=== PATIENT | female | born 1950 | race Caucasian/White ===

== ENCOUNTER 2017-06-28 18:50 | Inpatient (IN) | payer MEDICARE ==
[~2017-06-28] VITALS: Ht 182.9 cm; Wt 73.9 kg
--- NOTE | ~2017-06-28 | OP ---
PATIENT NAME: CODY CANO MEDICAL RECORD: [id number] :50 LOCATION:D.M2 D.2132 ADMISSION DATE:06/28/17 SURGEON: PRAKASH VILLALPANDO MD DATE OF OPERATION: 06/29/2017 PROCEDURES: 1. PTCA stent LAD diagonal. 2. Left heart catheterization. 3. Selective coronary angiography. 4. Left ventriculogram. INDICATIONS: Angina and coronary artery disease. PROCEDURE IN DETAIL: After informed consent was obtained and after detailed explanation of risks, benefits, as well as alternative therapies, the patient elected to proceed with angiogram and angioplasty. The right radial area was prepped and draped in normal sterile fashion. The right radial artery was cannulated via modified Seldinger technique with placement of 6-Togolese sheath. All catheters exchanged through this sheath. FINDINGS: 1. The left anterior descending has a relatively large diagonal system with 90% stenosis at the ostium. 2. The left main is with no significant angiographic disease. 3. The left circumflex shows mild irregularities, but no flow-limiting stenosis. 4. Right coronary has mild irregularities, but no flow-limiting stenosis. PTCA STENT OF THE LAD DIAGONAL: The stent used is a 2.25 x 8 mm Integrity. Result was 0% residual stenosis. OVERALL IMPRESSION: Successful percutaneous transluminal coronary angioplasty stent of the LAD diagonal from 90% initial stenosis to 0% residual. TRANSINT:[id number] Voice Confirmation ID: [id number] DOCUMENT ID: [id number] PRAKASH VILLALPANDO MD CC: [id number] DICTATION DATE: 06/29/17 1214 SUPERVISOR RIPRAP PLACING: 06/29/17 1420 ADM IN [place] [address] [place] [address]
--- NOTE | ~2017-06-28 | HEMODYNAMI ---
PATIENT:CODY CANO MEDICAL RECORD: [id number] : 50 [facility]ATION[facility] D.2132 [id number] ADMISSION DATE: 06/28/17 Generatedon:06/29/201712:18 Patient name: CODY CANO Patient #: [id number] SSN: : 1950 Date of study: 06/29/2017 Page: Of Hemodynamic Procedure Report Patient Data Patient Demographics Procedure consent was obtained First Name: CODY Gender: Female Last Name: RACHAEL : 1950 [facility] Initial: D Age: 67 year(s) Patient #: [id number] Race: Unknown Additional ID: [id number] Contact details [address]: [address] [place] [address] State: [place] City: [place] Zip code: [address] Past Medical History Allergies Allergen Reaction Date Comments Reported Other allergy 06/29/2017 Niacin, Crestor, Simvastatin Admission Admission Data Admission Date: 06/28/2017 Admission Time: 18:51 [facility] Lab Result Date: 06/28/2017 Lab Result Time: 21:00 Biochemistry Name Units Result Min Max BUN mg/dl 8 --(*---)-- 7 18 Creatinine mg/dl 0.9 --(-*--)-- 0.6 1.3 CBC Name Units Result Min Max Hematocrit % 36.3 *-(----)-- 42 54 Hemoglobin g/dl 12.5 *-(----)-- 13.5 17.5 Procedure Procedure Types Cath Procedure Diagnostic Procedure C [facility] w/Coronaries PCI Procedure Coronary Stent Initial Miscellaneous Procedures Moderate Sedation up to 15 minutes Procedure Description Procedure Date Procedure Date: 06/29/2017 Procedure Start Time: 12:00 Procedure End Time: 12:17 Procedure Staff Name Function Cachorro Thompson MD Performing Physician Samantha Carmona RT Scrub Milad Caldwell RN Nurse Freddy Garay RT Monitor Procedure Data Cath Procedure Fluoroscopy Diagnostic fluoroscopy Total fluoroscopy Time: 2.9 time: 2.9 min min Diagnostic fluoroscopy Total fluoroscopy dose: 430 dose: 430 mGy mGy Contrast Material Contrast Material Type Amount (ml) Isovue 300 0 Isovue 300 66 Entry Location Entry Primary Successful Side Size Upsize Upsize Entry Closure Curry ccessful Closure Location (Fr) 1 (Fr) 2 (Fr) Remarks Device Remarks Radial Right 6 Fr Mechanical artery Short Compression Estimated blood loss: 10 ml Diagnostic catheters Device Type Used For End Catheter Placement Diagnostic Terumo 5Fr Procedure Cleaton 110cm catheter Procedure Complications No complications Procedure Medications Medication Administration Route Dosage Oxygen NC 2 l/min Heparin Flush Bag added to field 2 bags (1000units/500ml NS) 0.9% NaCl I.V. 100 ml/hr Radial Cocktail added to field 1 syringe (Verapomil 2mg/Nitro 400mcg/Heparin 1500units) Fentanyl I.V. 50 mcg Versed I.V. 1 mg Radial Cocktail I.A. 1 syringe (Verapomil 2mg/Nitro 400mcg/Heparin 1500units) Fentanyl I.V. 50 mcg Versed I.V. 1 mg Heparin Bolus I.V. 4000 units Fentanyl I.V. 50 mcg Fentanyl I.V. 50 mcg Plavix P.O. 75 mg Hemodynamics Rest Heart Rate: 69 (bpm) Pressure Samples Time Site Value (mmHg) Purpose Heart Use Rate(bpm) 12:05 LV 126/10,7 Snapshot 93 Snapshots Pre Cath Intra NCS Post Cath Vital Signs Time Heart Resp SPO2 etCO2 KV0gwum NIBP (mmHg) Rhythm Pain Sedation Rate (ipm) (%) (mmHg) (mmHg) Status Level (bpm) 11:45:58 60 17 100 0 0 144/72(98) NSR 0 (11) 10(A) , No pain 11:50:12 63 17 100 0 0 147/74(95) NSR 0 (11) 10(A) , No pain 11:54:28 71 18 97 0 0 131/71(95) NSR 0 (11) 10(A) , No pain 11:58:38 72 18 97 0 0 137/73(98) NSR 0 (11) 10(A) , No pain 12:02:50 74 16 95 0 0 125/77(120) NSR 0 (11) 9(A) , No pain 12:07:53 90 16 94 0 0 123/73(97) NSR 0 (11) 9(A) , No pain 12:12:03 89 18 95 0 0 142/64(93) NSR 0 (11) 9(A) , No pain 12:15:36 79 18 92 0 0 113/78(106) NSR 0 (11) 10(A) , No pain Medications Time Medication Route Dose Verified Delivered Reason Note s Effectiveness by by 11:47:41 Oxygen NC 2 l/min Milad Stinson Per physician Javi Caldwell RN RN 11:47:48 Heparin Flush added 2 bags Milad Stinson used for Bag to Javi Caldwell RN procedure (1000units/500ml field RN NS) 11:47:58 0.9% NaCl I.V. 100 Milad Milad Per physician ml/hr Javi Caldwell RN RN 11:48:09 Radial Cocktail added 1 Milad Stinson used for (Verapomil to syringe Javi Caldwell RN procedure 2mg/Nitro field RN 400mcg/Heparin 1500units) 12:01:05 Fentanyl I.V. 50 mcg Milad Stinson for sedation Javi Caldwell RN RN 12:01:11 Versed I.V. 1 mg Milad Stinson for sedation Javi Caldwell RN RN 12:04:16 Radial Cocktail I.A. 1 Milad Cachorro for (Verapomil syringe Javi Thompson MD vasodilation 2mg/Nitro RN 400mcg/Heparin 1500units) 12:04:22 Fentanyl I.V. 50 mcg Milad Stinson for sedation Javi Caldwell RN RN 12:04:27 Versed I.V. 1 mg Milad Stinson for sedation Javi Caldwell RN RN 12:08:03 Heparin Bolus I.V. 4000 Milad Milad for units Javi Caldwell RN anticoagulation RN 12:08:08 Fentanyl I.V. 50 mcg Milad Stinson for sedation Javi Caldwell RN RN 12:10:16 Fentanyl I.V. 50 mcg Milad Montesy for sedation Javi Caldwell RN RN 12:14:18 Plavix P.O. 75 mg Milad Stinson for Javi Caldwell RN antiplatelet RN therapy Procedure Log Time Note 11:17:01 Milad Caldwell RN sent for patient. Start room use. 11:17:02 Time tracking: Call back 11:17:14 Plan of Care:Hemodynamics will remain stable., Cardiac rhythm will remain stable., Comfort level will be maintained., Respiratory function will remain adequate., Patient/ family verbilizes understanding of procedure., Procedure tolerated without complication., Recovers from procedure without complications.. 11:28:50 Lab Result : Hemoglobin 12.5 g/dl 11::50 Lab Result : Creatinine 0.9 mg/dl 11::50 Lab Result : BUN 8 mg/dl 11::50 Lab Result : Hematocrit 36.3 % 11:30:57 H&P Date Dictated: 06/28/2017 Within 30 days and on chart.. 11:37:57 Patient received from PCU to CCL 1 Alert and oriented. Tansferred to table in Supine position. 11:37:58 Warm blankets applied, and caro hugger turned on for patient comfort. 11:37:58 Correct patient and procedure confirmed by team. 11:38:00 Signed procedure consent form obtained from patient. 11:38:01 ECG and BP/O2 sat monitors applied to patient. 11:38:01 Full Disclosure recording started 11:44:44 Vital chart was started 11:44:48 Rhythm: sinus rhythm 11:47:41 Oxygen 2 l/min NC was administered by Milad Caldwell RN; Per physician; 11:47:48 Heparin Flush Bag (1000units/500ml NS) 2 bags added to field was administered by Milad Caldwell RN; used for procedure; 11:47:58 0.9% NaCl 100 ml/hr I.V. was administered by Milad Caldwell RN; Per physician; 11:48:09 Radial Cocktail (Verapomil 2mg/Nitro 400mcg/Heparin 1500units) 1 syringe added to field was administered by Milad Caldwell RN; used for procedure; 11:50:42 Pre-procedure instructions explained to patient. 11:50:42 Pre-op teaching completed and patient verbalized understanding. 11:50:46 Family in patients room. 11:50:47 Patient NPO since Midnight. 11:51:25 Patient allergic to Other allergyNiacin, Crestor, Simvastatin 11:51:27 Is the patient allergic to Iodine/contrast media? No. 11:51:32 Is patient on blood thinner?Yes 11:51:36 ACC The patient was administered the following blood thiners within the last 24 hours: ACCPlavix 11:51:38 Patient diabetic? Yes. 11:51:39 If diabetic: On Metformin? Yes 11:51:44 If on Metformin: Last Dose? 06/28/2017 11:51:51 Previous problem with sedation/anesthesia? No ? 11:51:54 Snore? Yes 11:52:46 Sleep apnea? No 11:52:48 Deviated septum? No 11:52:54 Opens mouth fully? Yes 11:52:55 Sticks out tongue? Yes 11:52:57 Airway obstruction? No ? 11:53:05 Dentures? Yes OUT 11:53:10 Modified Suleman's test Ulnar < 7 seconds 11:53:12 Patient pain scale 0/10 ?. 11:53:22 IV patent on arrival in left forearm with 0.9% NaCl at [facility]. 11:53:27 Lab results completed and on chart. 11:53:31 Right Radial & Right Groin area was prepped with chlora-prep and draped in sterile fashion 11:53:32 Alarms reviewed by R. N. 11:53:32 Sharps counted by scrub and verified by R.N. 11:53:36 Use device set Radial Dx 11:53:39 Tegaderm 4 x 4 opened to sterile field. 11:53:40 Acist Manifold opened to sterile field. 11:53:40 Acist Hand Control opened to sterile field. 11:53:42 Acist Syringe opened to sterile field. 11:53:42 Medline Cath Pack opened to sterile field. 11:53:43 Bag Decanter opened to sterile field. 11:53:43 Terumo 6Fr Slender Glidesheath opened to sterile field. 11:53:43 St Ayad 260cm J .035 wire opened to sterile field. 11:53:50 Physician paged 11:54:02 Baseline sample Acquired. 12:00:31 Zero performed for pressure channel P1 12:00:41 Physician arrived 12:00:41 --------ALL STOP TIME OUT------ 12:00:41 Final Timeout: patient, procedure, and site verified with staff and physician. All members of the team are in agreement. 12:00:43 Right Radial & Right Groin site verified by team. 12:00:45 Physical assessment completed. ASA score P 2 - A patient with mild systemic disease as per Cachorro Thompson MD. 12:00:48 Sedation plan: IV Moderate Sedation Versed, Fentanyl 12:00:55 Procedure started. 12:00:59 Local anesthetic to right radial artery with Lidocaine 2% by Cachorro Thompson MD.INITIAL ACCESS ONLY 12:01:05 Fentanyl 50 mcg I.V. was administered by Milad Caldwell RN; for sedation; 12:01:06 A 6 Fr Short sheath was inserted into the Right Radial artery 12:01:11 Versed 1 mg I.V. was administered by Milad Caldwell RN; for sedation; 12:04:16 Radial Cocktail (Verapomil 2mg/Nitro 400mcg/Heparin 1500units) 1 syringe I.A. was administered by Cachorro Thompson MD; for vasodilation; 12:04:18 A Diagnostic ISpeakumo 5Fr Cleaton 110cm catheter was advanced over the wire and used for Procedure. 12:04:22 Fentanyl 50 mcg I.V. was administered by Milad Caldwell RN; for sedation; 12:04:27 Versed 1 mg I.V. was administered by Milad Caldwell RN; for sedation; 12:05:09 LV gram done using TORRE 12:05:12 Injector settings: Ml/sec: 5, Volume: 15, 12:05:16 EF : 60 % 12:05:21 LCA angiography performed. 12:05:53 GonnaBe BasixCompak Inflation Kit opened to sterile field. 12:05:54 Carrizales Whisper J 300cm 0.014 guide wire opened to sterile field. 12:06:38 RCA angiography performed. 12:06:43 Carrizales Whisper J 300cm 0.014 guide wire opened to sterile field. 12:06:47 Cordis 6FR XBLAD 3.5 guide catheter opened to sterile field. 12:08:03 Heparin Bolus 4000 units I.V. was administered by Milad Caldwell RN; for anticoagulation; 12:08:08 Fentanyl 50 mcg I.V. was administered by Milad Caldwell RN; for sedation; 12:08:08 Catheter removed. 12:08:14 6 Fr xblad 3.5 guide catheter was inserted over the wire 12:08:18 1st. whisper wire advanced down LAD. 12:09:12 Wire advanced across lesion. 12:09:15 2nd. whisper wire advanced down Diag. 12:09:20 Wire advanced across lesion. 12:10:16 Fentanyl 50 mcg I.V. was administered by Milad Caldwell RN; for sedation; 12:11:03 Inflation Number: 1 A Medtronic Integrity 2.25 X 8 stent was prepped and advanced across the 1st Diag. The stent was deployed at 13 NATALIO for 0:10 (min:sec). 12:11:19 Stent catheter was removed intact over wire. 12:11:20 Wire removed. 12:11:20 Wire removed. 12:11:21 Guide catheter removed. 12:11:26 Terumo TR Band Standard opened to sterile field. 12:12:00 Sheath removed intact; hemostasis achieved with Mechanical Compression to the Right Radial artery. 12:12:10 Procedure ended.(Physican Out) 12:14:18 Plavix 75 mg P.O. was administered by Milad Caldwell RN; for antiplatelet therapy; 12:14:45 Fluoroscopy time 02.90 minutes. 12:14:49 Fluoroscopy dose: 430 mGy 12:14:49 Flurop Dose total: 430 12:14:55 Contrast amount:Isovue 300 0ml. 12:15:17 Sharps counted by scrub and verified by R.N. 12:15:20 Contrast amount:Isovue 300 66ml. 12:15:24 TR band inflated with 10cc of air. 12:15:31 Insertion/operative site no bleeding no hematoma. 12:15:35 Post right radial artery:stable, soft, clean and dry 12:15:37 Post Procedure Pulses reassessed and unchanged 12:15:42 Post-procedure physical assessment completed. ASA score P 2 - A patient with mild systemic disease as per Cachorro Thompson MD. 12:15:44 Post procedure rhythm: unchanged. 12:15:46 Estimated blood loss: 10 ml 12:15:47 Post procedure instruction explained to patient.Patient verbalizes understanding. 12:15:48 Patient needs reinforcement of post procedure teaching. 12:16:23 Procedure type changed to Cath procedure, Diagnostic procedure, LHC, LHC w/Coronaries, PCI procedure, Coronary Stent Initial, Miscellaneous Procedures, Moderate Sedation up to 15 minutes 12:16:46 Procedure and supply charges have been captured, reviewed, submitted and are correct. 12:16:48 Procedure Complication : No complications 12:16:53 Vital chart was stopped 12:16:55 See physician's report for complete and final results. 12:16:57 Report given to PCU. 12:17:00 Patient transfered to PCU with Stretcher. 12:17:03 Procedure ended. 12:17:03 Full Disclosure recording stopped 12:17:17 End room use (Document Last) Intervention Summary Intervention Notes Time ActionType Lesion and Equipment Action# Pressure Duration Attributes Used 12:11:03 Place stent 1st Diag Medtronic 1 13 00:10 Integrity 2.25 X 8 stent Device Usage Item Name Manufacture Quantity Catalog Hospital Part Current Minimal Lot# / Number Charge Number Stock Stock Serial# Code Tegaderm 4 1 [id number] 228671 878210 5 x 4 Acist Acist 1 42641 099292 636810 704471 5 Manifold Medical Systems Inc Acist Hand Acist 1 59489 251819 262679 256750 5 Control Medical Systems Inc Acist Acist 1 04071 689344 948310 185825 20 Syringe Medical Systems Inc Medline Cardinal 1 [id number] 401268 79395 088516 5 Cath Pack Health Bag Microtek 1 2001S 022311 92532 260066 5 TellMi Medical Inc. Terumo 6Fr Terumo 1 [id number] 247595 757613 941260 [address] Ay[address] St Ayad 1 977817 680238 866194 012047 30 260cm J .035 wire Diagnostic Terumo 1 40-4014 804831 084250 191047 5 Terumo 5Fr Cleaton 110cm catheter Merit Merit 1 [id number] 299010 447985 335931 15 BasixCompak Medical Inflation Kit Carrizales Carrizales 2 [id number] 327060 911768 537883 5 Whisper J Vascular 300cm 0.014 guide wire Cordis 6FR Cardinal 1 [id number] 791266 996640 821974 10 XBLAD 3.5 Health guide catheter Medtronic Medtronic 1 [id number] 983736 583957 1 [id number] Integrity 2.25 X 8 stent Terumo TR Terumo 1 [id number] 334484 280119 567305 40 Band Standard Signature Audit [place] Stage Time Signature Unsigned Intra-Procedure 06/29/2017 Freddy Garay 12:18:29 PM RT(R) Signatures Monitor : Freddy Garay RT Signature : Date : Time : [facility] [address] [place] [address]
--- NOTE | ~2017-06-28 | DS ---
PATIENT:CODY SALCEDO :50 MEDICAL RECORD: [id number] DISCHARGE SUMMARY ADMISSION DATE: 06/28/17 DISCHARGE DATE: DATE OF DISCHARGE: 06/29/2017 DISCHARGE DIAGNOSES: 1. Angina. 2. Coronary artery disease. 3. Percutaneous transluminal coronary angioplasty stent of left anterior descending this admission. HOSPITAL COURSE: Mrs. Salcedo presents with anginal symptomatology, found to have significant disease to the LAD, diagonal and underwent successful PTCA stent, had an uneventful postop course. She was discharged home with the addition of aspirin and Plavix to her medical regimen. She will follow up with [facility] in 1 month. TRANSINT:[id number] Voice Confirmation ID: [id number] DOCUMENT ID: [id number] PRAKASH VILLALPANDO MD CC: [id number] DICTATION DATE: 06/29/17 1213 PROFESSOR OF VOICE: 06/29/17 1534 ADM IN [facility] [address] [place] [address]
--- NOTE | 2017-06-28 19:15 | NUR ---
PT ARRIVED TO UNIT FROM DR PENG OFFICE. ENTERED UNIT AMBULATORY WITH A STEADY GAIT. PT STATES: "THERE IS NOTHING WRONG WITH ME, I DONT KNOW WHY I LET THEM TALK ME INTO COMING HERE." PT STATES: "THEY FOUND A BAD HEART RHYTHYM AND SENT ME HERE." ADMITTED TO ROOM 2131. TELEMETRY STARTED, AND EKG DONE. I ATTEMPTED TO START SALINE LOCK X 1 WITHOUT SUCCESS. CHARGE NURSE REQUESTED TO START IV. PT IS ALERT AND ORIENTED X 3. HER DAUGHTER IS AT THE BEDSIDE. PT IS SENDING HER HOME, STATING SHE DOES NOT NEED A SALVAGE DETERMINER. SR'S ARE UP X 2 IN BED. CALL LIGHT AND BEDSIDE TABLE ARE WITHIN EASY REACH.
[2017-06-28] MEDS ORDERED: PRINZIDE 20/12.1 TA1 PO (19:59)
[2017-06-28 20:00] VITALS: BP 137/77
[2017-06-28] MEDS ORDERED: OMEPRAZOLE40 MG PO (20:01)
[2017-06-28] MEDS ORDERED: EFFEXOR XR37.5 MG PO (20:02)
[2017-06-28] MEDS ORDERED: GLUCOPHAGE500 MG PO (20:02)
[2017-06-28] MEDS ORDERED: GLIMEPIRIDE2 MG PO (20:03)
[2017-06-28 21:09] LABS: BASOPHILS 0.5 % (0-2); EOSINOPHILS 3.1 % (0-7); HEMATOCRIT 36.3 % (36.0-48.0); HEMOGLOBIN 12.5 g/dL (12-16); IMMATURE GRANULOCYTES 0.3 % (0-5); LYMPHOCYTES 45.6 % (15-50); MCH 30.3 pg (26.0-34.0); MCHC 34.4 g/dL (31.0-37.0); MCV 87.9 fL (80.0-100.0); MEAN PLATELET VOLUME 9.4 fL (7.4-10.4); MONOCYTES 7.6 % (2-11); NEUTROPHILS 42.9 % (40-80); PLATELET COUNT 206 10x3/uL (130-400); RBC 4.13 10x6/uL (4.00-5.40); RDW 13.2 % (11.5-14.5); WBC 5.8 10x3/uL (4.8-10.8)
[2017-06-28 21:46] LABS: ALBUMIN 3.5 g/dL (3.4-5.0); ALKALINE PHOSPHATASE 102 U/L (46-116); ALT (SGPT) 64 U/L (10-68); BILIRUBIN - TOTAL 0.39 mg/dL (0.2-1.3); CALC OSMOLALITY 277 mosm/kg (275-300); CALCIUM 8.5 mg/dL (8.5-10.1); CARBON DIOXIDE 29.3 mmol/L (21.0-32.0); CHLORIDE - SERUM 100 mmol/L (98-107); CKMB 0.7 U/L (0.0-3.6); CREATINE KINASE 90 UL (21-215); CREATININE - SERUM 0.9 mg/dL (0.6-1.3); GLUCOSE 127 mg/dL (74-106); MAGNESIUM - SERUM 1.7 mg/dL (1.8-2.4); POTASSIUM - SERUM 3.3 mmol/L (3.5-5.1); PROTEIN - SERUM 6.9 g/dL (6.4-8.2); SODIUM 139 mmol/L (136-145); UREA NITROGEN 8 mg/dL (7-18); eGFR NON AFRICAN AMERICAN 66 mL/min (90-120)
[2017-06-28 21:49] LABS: TROPONIN-I < 0.017 ng/mL (0.000-0.060)
--- NOTE | 2017-06-28 22:17 | NUR ---
PT IS RESTING QUIETLY IN BED WITH EYES CLOSED. RESPS ARE EVEN AND UNLABORED. NO ACUTE DISTRESS NOTED.
[2017-06-28 22:18] VITALS: Ht 182.9 cm; Wt 73.9 kg
[2017-06-29 00:02] VITALS: BP 116/74
--- NOTE | 2017-06-29 00:10 | NUR ---
RESTING IN BED WITH EYES CLOSED.
[2017-06-29 04:00] VITALS: BP 113/44
--- NOTE | 2017-06-29 04:05 | NUR ---
PT IS RESTING QUIETLY IN BED WITH EYES CLOSED. NO DISTRESS NOTED.
[2017-06-29 04:53] LABS: CKMB 0.5 U/L (0.0-3.6); CREATINE KINASE 82 UL (21-215)
[2017-06-29 04:54] LABS: TROPONIN-I < 0.017 ng/mL (0.000-0.060)
--- NOTE | 2017-06-29 07:34 | NUR ---
AM ROUNDS- PT IN BED, DENIES ANY NEEDS AT THIS TIME. CALL LIGHT IN REACH, LT FA IV SL. BED LOW AND WHEELS LOCKED. NAD NOTED, WILL CONTINUE TO MONITOR.
[2017-06-29 09:34] VITALS: BP 125/62
--- NOTE | 2017-06-29 11:23 | NUR ---
PRE-OP MES GIVEN. PT IN BED, DENIES ANY NEEDS AT THIS TIME. FAMILY AT BEDSIDE, NAD NOTED, WILL CONTINUE TO MONITOR.
--- NOTE | 2017-06-29 11:40 | NUR ---
PT TRANSFERED TO DOCUMENT PROCESSING SPECIALIST VIA BED, NAD NOTED.
--- NOTE | 2017-06-29 12:15 | CN ---
PATIENT NAME:CODY SALCEDO MEDICAL RECORD: [id number] : 50 LOCATION:. D.2132 ADMIT DATE: 06/28/17 ACCOUNT: [id number] CONSULTING PHYSICIAN: PRAKASH VILLALPANDO MD REFERRING PHYSICIAN: WALTER HEATH DO DATE OF CONSULTATION: 06/28/2017 Cardiology Consultation ADMITTING DIAGNOSES: 1. Unstable angina. 2. Hypertension. 3. Hyperlipidemia. 4. Diabetes. 5. Family history of coronary artery disease. HISTORY OF PRESENT ILLNESS: Mrs. Salcedo has not had a previous cardiac history. She awoke at 2:00 a.m. with chest pain and chest discomfort that lasted for hours. It was a classic anginal pressure-like sensation. She presented to Dr. Heath's office. She has ischemic changes on her EKG. She is now admitted. She has not had any further chest pain. She has multiple risk factors as above. PHYSICAL EXAMINATION: GENERAL APPEARANCE: Well-nourished, well-developed, appears stated age. Level of distress, comfortable. PSYCHIATRIC: Mental status, alert, normal affect. Orientation, oriented to time, place and person. EYES: Lids and conjunctiva, noninjected. No discharge, no pallor. ENT: Lips, teeth, gums, normal dentition. Oropharynx, no cyanosis, no pallor. NECK: Carotid arteries, bilateral normal upstroke, no bruits, no thrills. JUGULAR VEINS: No jugular venous pressure or distention. CERVICAL LYMPH NODES: Nontender, nonenlarged. THYROID: Not enlarged. Nontender. No nodules. LUNGS: Respiratory effort, unlabored. CHEST: Normal curvature. No thoracic deformity. No chest wall tenderness. Percussion, resonant. Auscultation, clear. No wheezes, no rales, no rhonchi. CARDIOVASCULAR: Precordial exam, nondisplaced. No heaves or pericardial thrills. Rate and rhythm, regular. Heart sounds, normal S1, normal S2. No S3, no gallop, no rub. Systolic murmur, not heard. Diastolic murmur, not heard. EXTREMITIES: No cyanosis, no edema. Peripheral pulses, full and equal in all extremities, except as noted. No bruits appreciated. ABDOMEN: Soft, nondistended. Normal aorta. No bruit. Nontender. No masses. Liver, nontender, no hepatomegaly. Spleen, nontender, no splenomegaly. MUSCULOSKELETAL: No joint tenderness. No joint swelling. No erythema. NEUROLOGICAL: Normal gait, normal strength, normal tone. SKIN: Warm and dry. OVERALL IMPRESSION: Chest pain compatible with angina in an unstable fashion with multiple risk factors, abnormal ECG. Most likely, she has hemodynamically significant coronary artery disease. We will proceed with coronary angiography. Further care depends upon the findings of the angiography. TRANSINT:[id number] Voice Confirmation ID: [id number] DOCUMENT ID: [id number] CONSULT REPORT [id number] CODY SALCEDO [place] MD at 1215 CC: [id number] DICTATION DATE: 06/28/171999 RECYCLING TECH: 06/28/17 2232 ADM IN [facility] [address] [place] [address]
--- NOTE | 2017-06-29 12:32 | NUR ---
RECEIVED PT BACK TO ROOM 2131, VIA BED POST CATH, VITAL SIGNS STABLE. NO BLEEDING OR NOTED TO RT WRIST, PULSE PALPABLE. TR BAND TO SITE. PT MAG, K AND PHOS REPLACED AT THIS TIME, ALSO GAVE MORNING MEDS SCHEDULED. PT DNEIES ANY NEEDS AT THIS TIME. CALL LIGHT IN REACH, FAMILY AT BEDSIDE, NAD NOTED, WILL CONTINUE TO MONITOR.
--- NOTE | 2017-06-29 15:15 | NUR ---
TRIED TO REMOVE SOME AIR FROM TR BAND TO RT WRIST. SITE STARTED BLEEDING, PLACED AIR BACK IN. WILL TRY TO REMOVE AIR IN ABOUT 1HR. 1648- REMOVED 5CC OF AIR FROM TR BAND AT THIS TIME. NO BLEEDING NOTED. ADMINISTERED 325MG OF TYLENOL FOR PAIN LEVEL OF 7/10. PT DENIES ANY NEEDS AT THIS TIME. CALL LIGHT IN REACH, NAD NOTED, WILL CONTINUE TO MONITOR.
[2017-06-29] MEDS ORDERED: PLAVIX75 MG PO (16:19)
[2017-06-29 16:48] VITALS: BP 103/41
--- NOTE | 2017-06-29 17:01 | NUR ---
PAGED SHELL PRESS OPERATOR, WAITING SHELL PRESS OPERATOR BACK.
--- NOTE | 2017-06-29 17:47 | NUR ---
REMOVED THE REMAINING 5CC OF AIR OUT OF TR BAND, NOT BLEEDING NOTED, WILL CONTINUE TO MONITOR.
--- NOTE | 2017-06-29 18:04 | NUR ---
PAGED DOCTOR FERRYBOAT TICKET TAKER, WAITING FERRYBOAT TICKET TAKER BACK.
--- NOTE | 2017-06-29 18:13 | NUR ---
PROVIDED VERBAL AND WRITTEN DISCHARGE TEACHING TO PT. PT VERBALIZED UNDERSTANDING REGARDING TEACHING. D/C LT FA IV, TIP INTACT. NO BLEEDING NOTED, TR BAND REMOVED, COVERED WITH 2X2 AND PAPER TAPE. PT DENIES ANY NEEDS AT THIS TIME. INFORMED PT, STILL WAITING ON DOCTOR TO GIVE OK FOR D/C. NAD NOTED, WILL CONTINUE TO MONITOR.
--- NOTE | 2017-06-29 19:06 | NUR ---
PT LEFT UNIT VIA WHEELCHAIR, ACCOMPANIED BY FAMILY, NAD NOTED.
== END 2017-06-29 19:06 | disposition home or self-care (01) | DRG 249 ==
LOC: D.M2 18:50 → UNDOADMOB 18:50 → D.M2 18:50 → OBSVTIME 18:50 → D.M2 18:51
PROVIDERS: Family Medicine; Internal Medicine Interventional Cardiology; ADMIT Family Medicine
PROC: B2111ZZ Fluoroscopy of Multiple Coronary Arteries using Low Osmolar Contrast (ICD-10-PCS; 2017-06-29)
PROC: B2151ZZ Fluoroscopy of Left Heart using Low Osmolar Contrast (ICD-10-PCS; 2017-06-29)
PROC: 02703DZ Dilation of Coronary Artery, One Artery with Intraluminal Device, Percutaneous Approach (ICD-10-PCS; principal; 2017-06-29 12:00)
PROC: 4A023N7 Measurement of Cardiac Sampling and Pressure, Left Heart, Percutaneous Approach (ICD-10-PCS; 2017-06-29 12:00)
DX: I25.119 Atherosclerotic heart disease of native coronary artery with unspecified angina pectoris (principal); I10 Essential (primary) hypertension; E78.5 Hyperlipidemia, unspecified; E11.9 Type 2 diabetes mellitus without complications; K21.9 Gastro-esophageal reflux disease without esophagitis; F32.9 Major depressive disorder, single episode, unspecified

== ENCOUNTER 2017-07-01 17:39 | Emergency (ER) | payer MEDICARE ==
[2017-06-28 22:18] VITALS: BMI 22.1
[~2017-07-01 17:39] MED LIST: EFFEXOR XR37.5 MG PO; GLIMEPIRIDE2 MG PO; GLUCOPHAGE500 MG PO; OMEPRAZOLE40 MG PO; PLAVIX75 MG PO; PRINZIDE 20/12.1 TA1 PO
[2017-07-01 18:35] LABS: BASOPHILS 0.3 % (0-2); EOSINOPHILS 2.7 % (0-7); HEMOGLOBIN 13.6 g/dL (12-16); IMMATURE GRANULOCYTES 0.3 % (0-5); LYMPHOCYTES 44.2 % (15-50); MCH 30.8 pg (26.0-34.0); MCHC 34.9 g/dL (31.0-37.0); MCV 88.4 fL (80.0-100.0); MEAN PLATELET VOLUME 9.4 fL (7.4-10.4); MONOCYTES 6.3 % (2-11); NEUTROPHILS 46.2 % (40-80); PLATELET COUNT 238 10x3/uL (130-400); RBC 4.41 10x6/uL (4.00-5.40); RDW 13.1 % (11.5-14.5); WBC 5.9 10x3/uL (4.8-10.8)
[2017-07-01 18:52] LABS: ALBUMIN 3.7 g/dL (3.4-5.0); ALKALINE PHOSPHATASE 109 U/L (46-116); ALT (SGPT) 75 U/L (10-68); BILIRUBIN - TOTAL 0.39 mg/dL (0.2-1.3); CALC OSMOLALITY 276 mosm/kg (275-300); CALCIUM 8.9 mg/dL (8.5-10.1); CARBON DIOXIDE 28.9 mmol/L (21.0-32.0); CHLORIDE - SERUM 100 mmol/L (98-107); CREATININE - SERUM 1.1 mg/dL (0.6-1.3); POTASSIUM - SERUM 4.1 mmol/L (3.5-5.1); PROTEIN - SERUM 7.3 g/dL (6.4-8.2); SODIUM 136 mmol/L (136-145); UREA NITROGEN 11 mg/dL (7-18); eGFR NON AFRICAN AMERICAN 52 mL/min (90-120)
[2017-07-01 19:02] LABS: GLUCOSE 206 mg/dL (74-106)
[2017-07-01 19:07] LABS: CHOL - HDL RATIO 6.1 ratio (2.3-4.1); CHOLESTEROL, TOTAL 213 mg/dL (0-200); CKMB 0.5 U/L (0.0-3.6); CREATINE KINASE 84 UL (21-215); HDL CHOLESTEROL 35 mg/dL (32-96); LDL CHOLESTEROL 111 mg/dL (0-100); LDL-HDL RATIO 3.2 ratio (1.5-3.5); PRO BNP 30 pg/mL (0-125); TRIGLYCERIDE 335 mg/dL (30-200); TROPONIN-I 0.051 ng/mL (0.000-0.060)
== END 2017-07-01 19:56 | disposition home or self-care (01) ==
LOC: D.ER 17:39
PROVIDERS: Nurse Practitioner Acute Care
DX: I20.8 Other forms of angina pectoris (principal); I10 Essential (primary) hypertension; E11.9 Type 2 diabetes mellitus without complications; K21.9 Gastro-esophageal reflux disease without esophagitis; R06.00 Dyspnea, unspecified; R05 Cough; R06.02 Shortness of breath; R51 Headache; I49.3 Ventricular premature depolarization

== ENCOUNTER → 2017-07-04 14:10 | Outpatient (CLI) | payer MEDICARE ==
[2017-06-28 22:18] VITALS: BMI 22.1
== END | disposition home or self-care (01) ==
LOC: D.CT 14:00
DX: R51 Headache (principal)

== ENCOUNTER → 2017-12-03 10:10 | Outpatient (CLI) | payer MEDICARE ==
[2017-06-28 22:18] VITALS: BMI 22.1
== END | disposition home or self-care (01) ==
LOC: D.US 09:30
DX: I73.9 Peripheral vascular disease, unspecified (principal)

== ENCOUNTER → 2017-12-12 12:09 | Outpatient (CLI) | payer MEDICARE ==
[2017-06-28 22:18] VITALS: BMI 22.1
== END | disposition home or self-care (01) ==
LOC: D.CT 12:09
DX: E11.65 Type 2 diabetes mellitus with hyperglycemia (principal); I73.9 Peripheral vascular disease, unspecified

== ENCOUNTER → 2018-09-17 08:43 | Outpatient (CLI) | payer MEDICARE ==
[2017-06-28 22:18] VITALS: BMI 22.1
== END | disposition home or self-care (01) ==
LOC: D.MRI 08:43
DX: R51 Headache (principal)

== ENCOUNTER → 2018-09-25 16:40 | Outpatient (CLI) | payer MEDICARE ==
[2017-06-28 22:18] VITALS: BMI 22.1
== END | disposition home or self-care (01) ==
LOC: D.MAMMO 11:00
DX: Z12.31 Encounter for screening mammogram for malignant neoplasm of breast (principal)

== ENCOUNTER → 2021-04-07 09:23 | Outpatient (CLI) | payer OTHER ==
[2017-06-28 22:18] VITALS: BMI 22.1
== END | disposition home or self-care (01) ==
LOC: D.HCCARDIO 09:23
PROVIDERS: ATTEND Internal Medicine Cardiovascular Disease
DX: I25.10 Atherosclerotic heart disease of native coronary artery without angina pectoris (principal)

== ENCOUNTER 2021-04-17 10:38 | Day surgery (SDC) | payer OTHER ==
[~2021-04-17] VITALS: Ht 165.1 cm; Wt 71.5 kg
--- NOTE | ~2021-04-17 | HEMODYNAMI ---
PATIENT:CODY CANO MEDICAL RECORD: [id number] : 50 LOCATION:[facility] ADMISSION DATE: 04/17/21 Generatedon:112:13 Patient name: CODY CANO Patient #: [id number] SSN: [id number] : 1950 Date of study: 04/17/2021 Page: Of Hemodynamic Procedure Report Patient Data Patient Demographics Procedure consent was obtained First Name: CODY Gender: Female Last Name: RACHAEL : 1950 [facility] Initial: D Age: 70 year(s) Patient #: [id number] Race: SSN: [id number] Additional ID: [id number] Contact details Address: [address] [place] [address] State: [place] City: [place] Zip code: [address] Past Medical History Performed procedures and imaging results Date Procedure Procedure Results Comments 04/07/2021 Stress testing Positive->Intermediate with SPECT MPI risk Allergies Allergen Reaction Date Comments Reported Other allergy 04/17/2021 CORTICOSTERIODS, NIACIN Admission Admission Data Admission Date: 04/17/2021 Admission Time: 0:00 Arrival Date: 04/17/2021 Arrival Time: 0:00 Admit Source: Other Insurance Payor: Private health insurance [facility] #: [id number] Height (in.): 65 BSA: 1.79 (m2) Height (cm.): 165.1 BMI: 26.21 (kg/m2) Weight (lbs.): 157.52 Weight (kg.): 71.45 Lab Results Lab Result Date: 04/17/2021 Lab Result Time: 0:00 Biochemistry Name Units Result Min Max BUN mg/dl 24 --(----)-* 7 18 Creatinine mg/dl 1.1 --(--*-)-- 0.6 1.3 eGFR ml/min 52 *-(----)-- 90 120 NONAFRICAN CBC Name Units Result Min Max Hematocrit % 39.3 -*(----)-- 42 54 Hemoglobin g/dl 13.1 -*(----)-- 13.5 17.5 Procedure Procedure Types Cath Procedure Diagnostic Procedure [facility] w/Coronaries FFR/IVUS FFR Initial Sedation Charges Moderate Sedation 25-39 minutes PCI Procedure Hemochron ACT Test Procedure Description Procedure Date Procedure Date: 04/17/2021 Procedure Start Time: 13:51 Procedure End Time: 14:19 Procedure Staff Name Function Ashly Qasim RT Scrub Evaristo Ramirez RN Nurse Ankit Lewis MD Performing Physician Samanta Ngo RT Monitor Spenser Werner RN Nurse Procedure Data Cath Procedure Fluoroscopy Diagnostic fluoroscopy Total fluoroscopy Time: 3.5 time: 3.5 min min Diagnostic fluoroscopy Total fluoroscopy dose: 398 dose: 398 mGy mGy Contrast Material Contrast Material Type Amount (ml) Isovue 370 61 Entry Location Entry Primary Successful Side Size Upsize Upsize Entry Closure Succes sful Closure Location (Fr) 1 (Fr) 2 (Fr) Remarks Device Remarks Femoral Right 6 Fr Exoseal artery Short Estimated blood loss: 10 ml Diagnostic catheters Device Type Used For End Catheter Placement MULTIPACK JL 4.0 5Fr Procedure catheter MULTIPACK 3DRC 5Fr Procedure catheter MULTIPACK Pigtail 5 Fr Procedure catheter Procedure Complications No complications Procedure Medications Medication Administration Route Dosage 0.9% NaCl I.V. 100 ml/hr Oxygen etCO2 Nasal cannula 2 l/min Heparin Flush Bag added to field 2 bags (1000units/500ml NS) Lidocaine 2% added to field 20 Radial Cocktail added to field 1 syringe (Verapamil 2mg/Nitro 400mcg/Heparin 1500units) Versed I.V. 1 mg Fentanyl I.V. 50 mcg Versed I.V. 0.5 mg Versed I.V. 0.5 mg Fentanyl I.V. 25 mcg Heparin Bolus I.V. 4000 units Fentanyl I.V. 25 mcg Hemodynamics Rest BSA: 1.79 (m2) HGB: 13.1 (g/dl) O2 Consumption: Estimated: 164.02 (ml/min) O2 Co nsumption indexed: Estimated:91.63 (ml/min/m) Heart Rate: 69 (bpm) Pressure Samples Time Site Value (mmHg) Purpose Heart Use Rate(bpm) 14:05 LV 130/7,16 Snapshot 91 14:06 LV 227/11,93 Pullback 69 14:06 AO 127/67(97) Pullback 69 Gradients Valve Time Site 1 Site 2 Mean SEP/DFP Peak To Heart Use (mmHg) (sec/min) Peak Rate (mmHg) (bpm) Aortic 14:06 LV AO 20 13 100 69 227/11,93 127/67(97) Calculations Valve P-P Mean Valve Index Valve Source Name Gradient Area Flow (cm2) Aortic 100 20 100 20 Snapshots Pre Cath Intra NCS Post Cath Vital Signs Time Heart Resp SPO2 etCO2 NIBP (mmHg) Rhythm Pain Sedation Rate (ipm) (%) (mmHg) Status Level (bpm) 13:13:44 69 7 100 16.5 142/78(101) NSR 0 (11) 10(A) , No pain 13:18:43 80 13 96 35.4 Measuring NSR 0 (11) 10(A) , No pain 13:18:47 79 11 96 35.4 145/86(113) NSR 0 (11) 10(A) , No pain 13:23:01 79 10 96 40.7 130/81(98) NSR 0 (11) 10(A) , No pain 13:28:00 78 12 97 40.6 Measuring NSR 0 (11) 10(A) , No pain 13:28:06 80 12 97 41.4 135/80(104) NSR 0 (11) 10(A) , No pain 13:32:18 81 14 96 44.5 140/77(103) NSR 0 (11) 10(A) , No pain 13:36:28 81 16 97 44.5 131/84(112) NSR 0 (11) 10(A) , No pain 13:40:42 82 16 97 40.7 127/78(108) NSR 0 (11) 10(A) , No pain 13:44:56 83 16 97 33.1 129/72(107) NSR 0 (11) 10(A) , No pain 13:49:10 79 10 96 38.4 121/74(117) NSR 0 (11) 9(A) , No pain 13:53:53 82 14 96 45.9 118/87(103) NSR 0 (11) 9(A) , No pain 13:58:00 86 10 95 44.4 128/83(105) NSR 0 (11) 9(A) , No pain 14:02:06 85 10 94 41.4 107/80(101) NSR 0 (11) 9(A) , No pain 14:06:08 75 11 94 43.7 109/72(101) NSR 0 (11) 9(A) , No pain 14:11:03 92 12 95 46.7 116/77(111) NSR 0 (11) 9(A) , No pain 14:15:13 93 11 96 42.1 118/68(107) NSR 0 (11) 9(A) , No pain 14:19:21 94 12 96 35.4 109/79(103) NSR 0 (11) 10(A) , No pain Medications Time Medication Route Dose Verified Delivered Reason Not es Effectiveness by by 13:16:48 0.9% NaCl I.V. 100 Ankit Spenser used for ml/hr Joshua Werner drum stenciler 13:17:01 Oxygen etCO2 2 l/min Ankit Spenser used for Nasal Joshua Werner RN procedure cannula 13:17:10 Heparin Flush added 2 bags Ankit Ankit used for Bag to Joshua Lewis MD procedure (1000units/500ml field NS) 13:17:19 Lidocaine 2% added 20ml Ankit Ankit for local to vial Joshua Lewis MD anesthetic field 13:17:27 Radial Cocktail added 1 Ankit Ankit used for (Verapamil to syringe Joshua Lewis MD procedure 2mg/Nitro field 400mcg/Hepari 13:46:28 Versed I.V. 1 mg Ankit Spenser for sedation Joshua Werner RN 13:46:34 Fentanyl I.V. 50 mcg Ankit Spenser for sedation Joshua Werner RN 13:51:42 Versed I.V. 0.5 mg Ankit Spenser for sedation Joshua Werner RN 13:51:54 Fentanyl I.V. 25 mcg Ankit Spenser for sedation Joshua Werner RN 13:57:50 Versed I.V. 0.5 mg Ankit Spenser for sedation Joshua Werner RN 13:58:15 Fentanyl I.V. 25 mcg Ankit Spenser for sedation Joshua Werner RN 14:07:03 Heparin Bolus I.V. 4000 Ankit Spenser for units Joshua Werner RN anticoagulation Procedure Log Time Note 12:27:10 Informed consent obtained and on chart 12:27:30 Arrival Date: 04/17/2021 12:00:00 AM 12:27:32 Admission Date : 04/17/2021 12:00:00 AM 12:27:33 Admit Source: Other 12:27:56 Insurance Payor : Private health insurance 12:30:50 ACC Patient presents with Stable Angina CCS Anginal Class 2--Slight limitation of ordinary activity. 12:30:53 Procedure Status Elective Heart Cath (OP). 12:30:55 Time tracking: Regular hours (M-F 7:00 - 5:00) 12:30:59 Plan of Care:Hemodynamics will remain stable., Cardiac rhythm will remain stable., Comfort level will be maintained., Respiratory function will remain adequate., Patient/ family verbilizes understanding of procedure., Procedure tolerated without complication., Recovers from procedure without complications.. 12:31:17 H&P Date Dictated: 04/03/2021 Within 30 days and on chart.. 12:31:18 Pre-procedure instructions explained to patient. 12:31:19 Pre-op teaching completed and patient verbalized understanding. 12:31:28 Family in waiting room. 12:31:30 Patient NPO since Midnight. 12:31:46 Patient allergic to Other allergyCORTICOSTERIODS, NIACIN 12:32:01 Stress Test: yes; abnormal INFERIOR 12:32:03 Sharps counted by scrub and verified by R.N. 12:32:03 Alarms reviewed by R. N. 12:32:46 Lab results pending. 12:58:26 Lab Result : eGFR NONAFRICAN 52 ml/min 12:58:26 Lab Result : Creatinine 1.1 mg/dl 12:58:26 Lab Result : BUN 24 mg/dl 12:58:33 Spenser Werner RN sent for patient. Start room use. 12:59:41 Patient Height : 65 inches 12:59:50 Patient Weight : 157.52 lbs 13:03:22 Patient received from Pre/Post Procedure Room to CCL 1 Alert and oriented. Tansferred to table in Supine position. 13:03:24 ECG and BP/O2 sat monitors applied to patient. 13:03:24 Correct patient and procedure confirmed by team. 13:03:24 Warm blankets applied, and caro hugger turned on for patient comfort. 13:03:26 Full Disclosure recording started 13:03:30 Is the patient allergic to Iodine/contrast media? No. 13:03:31 Was the patient premedicated? Yes 13:03:33 Is patient on blood thinner?No 13:12:38 Vital chart was started 13:12:49 Patient diabetic? Yes. 13:12:51 If diabetic: On Metformin? Yes 13:12:54 If on Metformin: Last Dose? 04/15/2021 13:12:58 Patient not . Patient is over age 55. 13:12:59 ----Pre-sedation anethsthesia assessment.---- 13:13:03 Previous problem with sedation/anesthesia? No ? 13:13:05 Snore? Yes 13:13:06 Sleep apnea? No 13:13:10 Opens mouth fully? Yes 13:13:10 Deviated septum? No 13:13:11 Sticks out tongue? Yes 13:13:14 Airway obstruction? No ? 13:13:16 Dentures? Yes IN TIGHT 13:13:20 Pre procedure: right dorsailis pedis pulse 2+ Normal; easily identifiable; not easily obliterated 13:13:23 Modified Suleman's test Ulnar < 7 seconds 13:13:25 Patient pain scale 0/10 ?. 13:13:30 IV patent on arrival in left antecubital with 0.9% NaCl at O. 13:13:34 Right Radial & Right Groin area was prepped with chlora-prep and draped in sterile fashion 13:13:44 Baseline sample Acquired. 13:13:48 Rhythm: sinus rhythm 13:13:54 Use device set Radial Dx or PCI 13:13:57 Bag Decanter () opened to sterile field. 13:13:57 Medline Cath Pack ([id number]) opened to sterile field. 13:13:59 ACIST Hand Control (05792) opened to sterile field. 13:13:59 ACIST Syringe (91596) opened to sterile field. 13:14:00 ACIST Manifold (31096) opened to sterile field. 13:14:01 MBrace Wrist Support ([id number]) opened to sterile field. 13:14:02 NEEDLE Cook 21G 4cm Radial (M39640) opened to sterile field. 13:14:08 EMERALD Guide Wire (777-700) opened to sterile field. 13:14:09 SHEATH 6FR RAIN (7521482) opened to sterile field. 13:15:33 Lab Result : Hematocrit 39.3 % 13:15:33 Lab Result : Hemoglobin 13.1 g/dl 13:16:48 0.9% NaCl 100 ml/hr I.V. was administered by Spenser Werner RN; used for procedure; Verbal order read back and verified. 13:17:01 Oxygen 2 l/min etCO2 Nasal cannula was administered by Spenser Werner RN; used for procedure; Verbal order read back and verified. 13:17:10 Heparin Flush Bag (1000units/500ml NS) 2 bags added to field was administered by Ankit Lewis MD; used for procedure; Verbal order read back and verified. 13:17:19 Lidocaine 2% 20ml vial added to field was administered by Ankit Lewis MD; for local anesthetic; Verbal order read back and verified. 13:17:27 Radial Cocktail (Verapamil 2mg/Nitro 400mcg/Heparin 1500units) 1 syringe added to field was administered by Ankit Lewis MD; used for procedure; Verbal order read back and verified. 13:38:55 Zero performed for pressure channel P1 13:44:02 --------ALL STOP TIME OUT------ 13:44:05 Final Timeout: patient, procedure, and site verified with staff and physician. All members of the team are in agreement. 13:44:08 Right Radial & Right Groin site verified by team. 13:44:10 Fire Safety Assessment: A--An alcohol-based skin anteseptic being used preoperatively., C--Open oxygen or nitrous oxide is being used., D--An ESU, laser, or fiber-optic light is being used. 13:44:13 Physical assessment completed. ASA score P 2 - A patient with mild systemic disease as per Ankit Lewis MD. 13:44:15 Maximum allowable contrast dose (3.7 X eGFR X 0.75)144 ml. 13:44:18 3a) 45-59 Moderately reduced kidney function. 13:44:21 Sedation plan: IV Moderate Sedation Medication:Versed, Fentanyl 13:46:28 Versed 1 mg I.V. was administered by Spenser Alphonso RN; for sedation; Verbal order read back and verified. 13:46:34 Fentanyl 50 mcg I.V. was administered by Spenser Werner RN; for sedation; Verbal order read back and verified. 13:51:24 Procedure started. 13:51:42 Versed 0.5 mg I.V. was administered by Spenser Werner RN; for sedation; Verbal order read back and verified. 13:51:51 Local anesthetic to right radial artery with Lidocaine 2% by Ankit Lewis MD.INITIAL ACCESS ONLY 13:51:54 Fentanyl 25 mcg I.V. was administered by Spenser Werner RN; for sedation; Verbal order read back and verified. 13:57:06 UNABLE TO GAIN ACCESS RADIAL PROCEEDING TO RT GROIN. 13:57:15 Use device set Multipack Set 13:57:18 DIAGNOSTIC Multipack 5Fr catheter set ([id number]) opened to sterile field. 13:57:22 Tegaderm 4 x 4 (1626W) opened to sterile field. 13:57:31 SHEATH 5FR Larose (FJS371) opened to sterile field. 13:57:39 Local anesthetic to right femoral artery with Lidocaine 2% by Ankit Lewis MD.ADDITIONAL ACCESS 13:57:50 Versed 0.5 mg I.V. was administered by Spenser Werner RN; for sedation; Verbal order read back and verified. 13:58:15 Fentanyl 25 mcg I.V. was administered by Spenser Werner RN; for sedation; Verbal order read back and verified. 13:58:29 A 6 Fr Short sheath was inserted into the Right Femoral artery 13:59:52 A MULTIPACK JL 4.0 5Fr catheter was advanced over the wire and used for Procedure. 14:00:11 LCA angiography performed. 14:00:14 Injector settings: Ml/sec: 3, Volume: 6, 14:01:01 Catheter exchanged over wire. 14:03:22 A MULTIPACK 3DRC 5Fr catheter was advanced over the wire and used for Procedure. 14:03:25 RCA angiography performed. 14:03:28 Injector settings: Ml/sec: 3, Volume: 6, 14:03:54 Catheter exchanged over wire. 14:04:57 A MULTIPACK Pigtail 5 Fr catheter was advanced over the wire and used for Procedure. 14:05:06 LV gram done using TORRE 14:05:51 LV hemodynamics recorded. 14:06:02 EF : 55 % 14:06:37 Use device set LEWIS PCI 14:06:39 Proceeding to intervention. 14:06:43 INFLATOR Merit BasixCompak (ZC8003) opened to sterile field. 14:06:45 TUBING High Pressure Extension Tubing (Lewis) ([id number]) opened to sterile field. 14:06:55 Argillite OmniWire (65363) opened to sterile field. 14:07:03 Heparin Bolus 4000 units I.V. was administered by Spenser Werner RN; for anticoagulation; Verbal order read back and verified. 14:09:34 GUIDE 5FR EBU 3.5 catheter ([id number]) opened to sterile field. 14:09:39 6 Fr EBU 3.5 guide catheter was inserted over the wire 14:09:45 Pressure wire advanced. 14:10:11 Wire advanced across lesion. 14:12:04 LAD lesion measured at .91 with IFR 14:13:48 Wire removed. 14:13:49 Guide catheter removed. 14:14:13 EXOSEAL 5Fr (EX500) opened to sterile field. 14:14:53 Sheath removed intact; hemostasis achieved with Exoseal to the Right Femoral artery. 14:15:00 Fluoroscopy time 03.50 minutes. 14:15:05 Fluoroscopy dose: 398 mGy 14:15:05 Flurop Dose total: 398 14:15:11 Dose Area Product 83220 mGy/cm. 14:15:52 Contrast amount:Isovue 370 61ml. 14:15:55 Maximum allowable dose exceeded? No. 14:15:57 Sharps counted by scrub and verified by R.N. 14:16:25 Procedure ended.(Physican Out) 14:16:59 Post Procedure Pulses reassessed and unchanged 14:17:03 Post procedure: right dorsailis pedis pulse 2+ Normal; easily identifiable; not easily obliterated. 14:17:07 Post-procedure physical assessment completed. ASA score P 2 - A patient with mild systemic disease as per Ankit Lewis MD. 14:17:10 Post procedure rhythm: unchanged. 14:17:13 Estimated blood loss: 10 ml 14:17:15 Post procedure instruction explained to patient.Patient verbalizes understanding. 14:17:16 Patient needs reinforcement of post procedure teaching. 14:17:58 Procedure type changed to Cath procedure, Diagnostic procedure, [facility], [facility] w/Coronaries, FFR/IVUS, FFR Initial, Sedation Charges, Moderate Sedation 25-39 minutes, PCI procedure, Hemochron ACT Test 14:18:19 Procedure and supply charges have been captured, reviewed, submitted and are correct. 14:18:52 Procedure Complication : No complications 14:18:56 [facility] Findings: MVD- PCI performed (see procedure note) 14:18:57 Operative report dictated upon procedure completion. 14:18:58 See physician's report for complete and final results. 14:19:00 Report given to Pre/Post Procedure Room. 14:19:03 Patient transfered to Pre/Post Procedure Room with Stretcher. 14:19:04 Full Disclosure recording stopped 14:19:04 Procedure ended. 14:19:10 End room use (Document Last) 14:20:01 End room use (Document Last) 14:20:20 End room use (Document Last) 14:20:22 Vital chart was stopped 14:23:50 ACT drawn and resulted at hi seconds. (normal therapeutic range 180-240 seconds). 12:13:09 Due to technical difficulties on date of procedure, i had to have document resigned by Dr. Lewis. Samantha Carmona RT(R) Device Usage Item Name Manufacture Quantity Catalog Hospital Part Current Minima l Lot# / Number Charge Number Stock Stock Serial# Code Medline Medline 1 [id number] 70503 541178 5 Cath Pack ([id number]) Bag Microtek 1 658928 44938 801239 5 Decanter Medical Inc. () ACIST Acist 1 86573 762933 340322 938237 20 Syringe Medical (82079) Systems Inc ACIST Hand Acist 1 40537 223085 546088 709154 5 Control Medical (29222) Systems Inc ACIST Acist 1 13474 348954 993008 174478 5 Manifold Medical (99511) Systems Inc MBrace Advanced 1 140-0250-00 403335 29049 331734 5 Wrist Vascular Support Dynamics ([id number]) NEEDLE Newshubby Medical 1 Y63885 561762 661626 373158 5 21G 4cm Radial (P84106) EMERALD Cardinal 1 502-455 172583 371726 203960 5 Guide Wire [facility] (502-455) SHEATH 6FR Cardinal 1 8960864 141738 2176129 082927 5 [facility] ([id number]) DIAGNOSTIC Cardinal 1 YS7188 963547 81061 982017 30 Merged With [facility] 5Fr catheter set (OB6883) Tegaderm 4 3M 1 1626W 592555 879677 822097 5 x 4 (1626W) SHEATH 5FR Terumo 1 ONT857 088054 956346 988878 5 Larose (BPV297) MULTIPACK Cardinal 1 529212 5 JL 4.0 5Fr Health catheter MULTIPACK Cardinal 1 211811 5 3DRC 5Fr Health catheter MULTIPACK Cardinal 1 437674 5 Pigtail 5 Health Fr catheter INFLATOR Merit 1 VG0840 257552 384551 478104 15 Merit Medical BasixCompak (AT8391) TUBING High Merit 1 [id number] 946602 22964 507477 10 Pressure Medical Extension Tubing (Lewis) ([id number]) Argillite Argillite 1 [id number] 228222 60484 9930 5 OmniWire (72768) GUIDE 5FR Medtronic 1 [id number] 290099 855808 950148 1 EBU 3.5 catheter ([id number]) EXOSEAL 5Fr Cardinal 1 EX500 499200 592570 211315 10 (EX500) Health Signature Audit [place] Stage Time Signature Unsigned Intra-Procedure 04/17/2021 Samanta Ngo 2:20:01 PM RT(R) Intra-Procedure 04/17/2021 Evaristo Ramirez RN 2:20:20 PM 04/17/2021 2:21:33 PM Intra-Procedure 04/17/2021 Samanta Singh Counts 2:26:29 PM RT(R); Evaristo RT(R) 04/18/2021 Ashley ARCHULETA; Ankit 12:12:11 PM Joshua HOGUE Intra-Procedure 04/18/2021 Ankit Lewis MD 12:13:27 PM [id number] [place] [address]
[2021-04-17] MEDS ORDERED: GLUCOPHAGE1000 MG PO (11:50)
[2021-04-17] MEDS ORDERED: COZAAR100 MG PO (11:50)
[2021-04-17 12:08] VITALS: BP 137/67; Ht 165.1 cm; Wt 71.5 kg
[2021-04-17 12:33] LABS: EOSINOPHILS 3.3 % (0-7); HEMATOCRIT 39.3 % (36.0-48.0); HEMOGLOBIN 13.1 g/dL (12-16); MCH 28.2 pg (26.0-34.0); MCHC 33.3 g/dL (31.0-37.0); MCV 84.7 fL (80.0-100.0); MEAN PLATELET VOLUME 7.3 fL (7.4-10.4); MONOCYTES 6.6 % (2-11); NEUTROPHILS 41.1 % (40-80); PLATELET COUNT 278 10x3/uL (130-400); RBC 4.64 10x6/uL (4.00-5.40); RDW 13.6 % (11.5-14.5); WBC 6.2 10x3/uL (4.8-10.8)
[2021-04-17 12:46] LABS: ANION GAP 12.1 mmol/L (8-16); CALCIUM 9.3 mg/dL (8.5-10.1); CARBON DIOXIDE 26.5 mmol/L (21.0-32.0); CHOL - HDL RATIO 5.4 ratio (2.3-4.1); CREATININE - SERUM 1.1 mg/dL (0.6-1.3); LDL-HDL RATIO 3.1 ratio (1.5-3.5); POTASSIUM - SERUM 4.6 mmol/L (3.5-5.1)
--- NOTE | 2021-04-17 14:34 | NUR ---
PT ARRIVES TO ROOM 3 VIA STRETCHER S/P HEART CATH. SEE PILOT BOAT CAPTAIN. PT DENIES PAIN OR NEEDS , CALL LIGHT WITHIN REACH.
--- NOTE | 2021-04-17 14:50 | NUR ---
RESTING QUIETLY AROUSES EASILY TO VERBAL, VSS, SR, SATS 96% RA, RIGHT GROIN SOFT WITHOUT OOZING OR BLEEDING OPSITE C/D/I, EXTREMITY PINK AND WARM AND PEDAL PULSE PALPABLE, CAP REFILL WNL. PT DENIES PAIN OR NEEDS, IV INFUSING PER ORDERS, CALL LIGHT WITHIN REACH
--- NOTE | 2021-04-17 15:03 | NUR ---
PT GRANDDAUGHTER AT BEDSIDE , UPDATE GIVEN ON PLAN OF CARE AND TIME FRAME FOR RECOVERY
--- NOTE | 2021-04-17 15:18 | NUR ---
EYES CLOSED AROUSES EASILY, VSS, SR, SATS 96% RA, RIGHT GROIN SOFT WITH OUT OOZING OR BLEEDING, EXTREMITY PINK AND WARM PEDAL PULSE PALPABLE, CAP REFILL WNL, MOVES ALL DIGITS, DENIES PAIN OR NEEDS, IV INFUSING PER ORDERS, CALL LIGHT WITHIN REACH
--- NOTE | 2021-04-17 15:36 | NUR ---
PT RESTING QUIETLY AROUSES EASILY, VSS, SR, SATS 95% RA, RIGHT GROIN SOFT WITHOUT OOZING OR BLEEDING OPSITE C/D/I, EXTREMITY PINK AND WARM AND PEDAL PULSE PALPABLE, PT DENIES PAIN OR NEEDS, IV INFUSING PER ORDERS, CALL LIGHT WITHIN REACH
--- NOTE | 2021-04-17 15:45 | NUR ---
DR ELDRIDGE AT BEDSIDE TO SPEAK WITH PT AND FAMILY MEMBER
--- NOTE | 2021-04-17 16:06 | NUR ---
DR BISHOP AND PETERSON AT BEDSIDE TO SPEAK WITH PT AND FAMILY MEMBER
--- NOTE | 2021-04-17 16:27 | NUR ---
PT PLACED IN SEMI FOWLERS POSITION, SANDWICH BOX AND PO FLUIDS GIVEN, VSS, SR NO ECTOPY, SATS 97% RA, RIGHT GROIN WITHOUT OOZING OR BLEEDING , EXTREMITY WARM AND PEDAL PULSE PALPABLE, CAP REFILL WNL, DENIES PAIN OR NEEDS, CALL LIGHT WITHIN REACH, GRANDDAUGHTER AT BEDSIDE
--- NOTE | 2021-04-17 17:00 | NUR ---
RIGHT GROIN STABLE NO OOZING OR BLEEDING NOTED, EXTREMITY PINK AND WARM AND PEDAL PULSE PALPABLE, VSS,SR, RA SATS 97%, DENIES PAIN OR NEEDS, 22G IV REMOVED FROM LEFT FA CATHETER INTACT 2 X 2 DRESSING APPLIED, DISCHARGE INSTRUCTIONS REVIEWED WITH PT AND GRANDDAUGHTER BOTH VERBALIZED UNDERSTANDING, PT DRESSES AND AMBULATES TO BATHROOM TO VOID WITHOUT DIFFICULTY.
--- NOTE | 2021-04-17 17:15 | NUR ---
RASHAUN RN CALLS FROM DR BISHOP OFFICE STATES PT NOW HAS APPT ON SaturdayAPRIL 19 @ 2:30 PM [address], PT IS NOTIFIED OF THIS AND VERBALIZED UNDERSTANDING.
--- NOTE | 2021-04-17 17:30 | NUR ---
PT TAKEN TO FAMILY CAR VIA WHEELCHAIR, PT DENIES PAIN OR NEEDS.
== END 2021-04-17 17:30 | disposition home or self-care (01) ==
LOC: D.CATH 10:38
PROVIDERS: ATTEND Internal Medicine Cardiovascular Disease
DX: I25.118 Atherosclerotic heart disease of native coronary artery with other forms of angina pectoris (principal); R94.39 Abnormal result of other cardiovascular function study; I10 Essential (primary) hypertension

== ENCOUNTER 2021-04-19 10:46 | Emergency (ER) | payer OTHER ==
[~2021-04-19] VITALS: Ht 165.1 cm; Wt 71.4 kg
[~2021-04-19 10:46] MED LIST changes: +COZAAR100 MG PO; -GLIMEPIRIDE2 MG PO; +GLIMEPIRIDE4 MG PO; +GLUCOPHAGE1000 MG PO
[2021-04-19 10:49] VITALS: Ht 165.1 cm; Wt 71.4 kg
[2021-04-19 11:17] LABS: BASOPHILS 0.6 % (0-2); EOSINOPHILS 2.1 % (0-7); HEMATOCRIT 37.9 % (36.0-48.0); HEMOGLOBIN 12.5 g/dL (12-16); LYMPHOCYTES 32.4 % (15-50); MCH 27.8 pg (26.0-34.0); MCV 84.3 fL (80.0-100.0); MEAN PLATELET VOLUME 7.4 fL (7.4-10.4); MONOCYTES 6.8 % (2-11); NEUTROPHILS 58.1 % (40-80); PLATELET COUNT 255 10x3/uL (130-400); RDW 13.4 % (11.5-14.5); WBC 5.6 10x3/uL (4.8-10.8)
[2021-04-19 11:27] VITALS: BP 149/65
[2021-04-19 11:28] LABS: CALC OSMOLALITY 285 mosm/kg (275-300); CALCIUM 8.7 mg/dL (8.5-10.1); CARBON DIOXIDE 26.3 mmol/L (21.0-32.0); CHLORIDE - SERUM 101 mmol/L (98-107); CREATININE - SERUM 0.9 mg/dL (0.6-1.3); POTASSIUM - SERUM 5.2 mmol/L (3.5-5.1); SODIUM 138 mmol/L (136-145); UREA NITROGEN 18 mg/dL (7-18); eGFR NON AFRICAN AMERICAN 66 mL/min (90-120)
[2021-04-19 11:36] LABS: GLUCOSE 240 mg/dL (74-106)
[2021-04-19 11:45] LABS: ALBUMIN 3.5 g/dL (3.4-5.0); ALKALINE PHOSPHATASE 116 U/L (30-120); ALT (SGPT) 47 U/L (10-68); BILIRUBIN - TOTAL 0.32 mg/dL (0.2-1.3); CKMB 0.6 U/L (0.0-3.6); CREATINE KINASE 68 UL (21-215); MAGNESIUM - SERUM 1.9 mg/dL (1.8-2.4)
[2021-04-19 11:48] LABS: TROPONIN-I < 0.017 ng/mL (0.000-0.060)
[2021-04-19 11:57] LABS: APTT 27.8 SECONDS (22.8-39.4); INR 1.03 (0.85-1.17); PROTIME 12.5 SECONDS (11.6-15.0)
[2021-04-19] MEDS ORDERED: ISOSORBIDE MONO30 M1 PO (12:09)
== END 2021-04-19 12:45 | disposition home or self-care (01) ==
LOC: D.ER 10:46
PROVIDERS: Emergency Medicine
DX: R07.89 Other chest pain (principal); N18.9 Chronic kidney disease, unspecified; E87.5 Hyperkalemia; E11.65 Type 2 diabetes mellitus with hyperglycemia; I12.9 Hypertensive chronic kidney disease with stage 1 through stage 4 chronic kidney disease, or unspecified chronic kidney disease; Z79.84 Long term (current) use of oral hypoglycemic drugs

== ENCOUNTER 2021-04-20 08:00 | Outpatient (CLI) | payer OTHER ==
[~2021-04-20 08:00] MED LIST changes: +ISOSORBIDE MONO30 M1 PO
[2021-04-26 09:36] VITALS: BMI 26.4
== END 2021-04-20 08:01 | disposition home or self-care (01) ==
LOC: D.US 08:00
PROVIDERS: ATTEND Thoracic Surgery (Cardiothoracic Vascular Surgery)
DX: I65.29 Occlusion and stenosis of unspecified carotid artery (principal)

== ENCOUNTER 2021-04-25 05:05 | Inpatient (IN) | payer OTHER ==
[2021-04-20 12:51] LABS: EOSINOPHILS 2.1 % (0-7); HEMATOCRIT 36.3 % (36.0-48.0); HEMOGLOBIN 12.1 g/dL (12-16); LYMPHOCYTES 37.5 % (15-50); MCH 27.9 pg (26.0-34.0); MCHC 33.3 g/dL (31.0-37.0); MCV 83.9 fL (80.0-100.0); MONOCYTES 6.9 % (2-11); NEUTROPHILS 52.5 % (40-80); RBC 4.33 10x6/uL (4.00-5.40); RDW 13.4 % (11.5-14.5)
[2021-04-20 13:07] LABS: PLATELET COUNT 311 10x3/uL (130-400); WBC 7.3 10x3/uL (4.8-10.8)
[2021-04-20 13:15] LABS: ALBUMIN 3.6 g/dL (3.4-5.0); ANION GAP 12.5 mmol/L (8-16); BILIRUBIN - TOTAL 0.42 mg/dL (0.2-1.3); CARBON DIOXIDE 28.6 mmol/L (21.0-32.0); CREATININE - SERUM 1.1 mg/dL (0.6-1.3); INR 1.03 (0.85-1.17); PHOSPHOROUS 3.5 mg/dL (2.5-4.9); POTASSIUM - SERUM 4.1 mmol/L (3.5-5.1); PROTEIN - SERUM 7.3 g/dL (6.4-8.2); PROTIME 12.5 SECONDS (11.6-15.0); T4 THYROXIN - FREE 0.88 ng/dL (0.76-1.46); THYROID STIMULATING HORMONE 1.57 uIU/mL (0.36-3.74); URIC ACID 4.7 mg/dL (2.6-7.2)
[2021-04-20 13:22] LABS: APTT 26.7 SECONDS (22.8-39.4)
[2021-04-20 14:13] LABS: BILIRUBIN NEGATIVE (NEGATIVE); KETONE NEGATIVE (NEGATIVE); NITRITE NEGATIVE (NEGATIVE); UROBILINOGEN NORMAL mg/dL (< 2)
[2021-04-25] VITALS (28 sets, daily range): BP systolic 97–114; BP diastolic 32–67; BMI 26.1; BMI 26.0
[~2021-04-25] VITALS: Ht 165.1 cm; Wt 70.2 kg
--- NOTE | 2021-04-25 09:13 | NUR ---
CVL AND ARTERIAL LINE PLACED BY ANESTHESIA, MILO. LEFT LEG SCD APPLIED POST OP, RIGHT LEG WRAPPED, MILO.
--- NOTE | 2021-04-25 13:37 | NUR ---
PATIENT RECEIVED FROM OR, POST OP CABG X 2, VSS. CHEST TUBE TO 20 CM SUCTION WITH NO AIR LEAK DETECTED, BLOODY DRAINAGE NOTED, MEENAKSHI DRAIN TO SUBSTERNAL WITH BLOODY DRAINANGE NOTED, DRESSINGS C/D/I, RIGHT LEG WRAPPED IN COBAN, HARVEST SITE, LEFT LEG WITH PERCY HOSE AND SCD'S PLACED. RIGHT WRIST ART LINE AND LEFT GROIN ART LINE, LEVELED AND ZEROED. RIGHT JUGULAR CVL NOTED WITH DRESSING C/D/I, INFUSING PLASMOLYTE AT 100 ML/HR, DOPAMINE AT 3 MCG/KG/MIN (8 ML/HR), NEOSYNEPRINE AT 5 MCG/KG/MIN (10.7 ML/HR). MIDSTERNAL INCISION LUPE, WELL APPROXIMATED. RUGGIERO CATH IN PLACE WITH CLEAR YELLOW UOP NOTED. ETT 7.5, 22 AT LIP, VENT SETTINGS TV 500. PEEP 5, FIOE 40%, SIMV 24. SOFT BILATERAL WRIST RESTRAINTS PLACED. HEAD TO TOE ASSESSMENT COMPLETED.
[2021-04-25 14:03] LABS: BASOPHILS 0.6 % (0-2); EOSINOPHILS 0.7 % (0-7); HEMATOCRIT 30.4 % (36.0-48.0); HEMOGLOBIN 10.2 g/dL (12-16); LYMPHOCYTES 15.6 % (15-50); MCH 28.3 pg (26.0-34.0); MCHC 33.6 g/dL (31.0-37.0); MEAN PLATELET VOLUME 6.9 fL (7.4-10.4); MONOCYTES 8.1 % (2-11); PLATELET COUNT 322 10x3/uL (130-400); RBC 3.61 10x6/uL (4.00-5.40); RDW 13.6 % (11.5-14.5); WBC 14.1 10x3/uL (4.8-10.8)
[2021-04-25 14:15] LABS: ALBUMIN 2.9 g/dL (3.4-5.0); ANION GAP 13.7 mmol/L (8-16); BILIRUBIN - TOTAL 0.35 mg/dL (0.2-1.3); CALCIUM 8.3 mg/dL (8.5-10.1); CARBON DIOXIDE 26.1 mmol/L (21.0-32.0); CREATININE - SERUM 1.1 mg/dL (0.6-1.3); INR 1.36 (0.85-1.17); POTASSIUM - SERUM 3.8 mmol/L (3.5-5.1); PROTEIN - SERUM 5.3 g/dL (6.4-8.2); PROTIME 15.5 SECONDS (11.6-15.0)
[2021-04-25 14:16] LABS: APTT 28.1 SECONDS (22.8-39.4)
--- NOTE | 2021-04-25 14:30 | NUR ---
XRAY AT ROOM FOR CXR.
--- NOTE | 2021-04-25 14:40 | NUR ---
PATIENTS SON AT BEDSIDE, UPDATED AND QUESTIONS ANSWERED.
--- NOTE | 2021-04-25 15:00 | NUR ---
REASSESSMENT COMPLETED. PATIENT STARTING TO WAKE UP BUT EASILY DRIFTS BACK TO SLEEP. FOLLOWS COMMANDS.
--- NOTE | 2021-04-25 16:52 | NUR ---
DR. REEVES RETURNED CALL, NOTIFIED OF CONSULT.
--- NOTE | 2021-04-25 17:08 | NUR ---
PATIENTS GRANDDAUGHTER AT ROOM UPDATED AND QUESTIONS ANSWERED.
--- NOTE | 2021-04-25 18:25 | NUR ---
LACTIC ACID REDRAWN AND SENT TO LAB.
[2021-04-26] VITALS (24 sets, daily range): BP systolic 92–124; BP diastolic 46–66; Ht 165.1 cm; Wt 70.2 kg
[2021-04-26 04:58] LABS: HEMATOCRIT 24.5 % (36.0-48.0); MCH 27.9 pg (26.0-34.0); MCHC 32.6 g/dL (31.0-37.0); MCV 85.7 fL (80.0-100.0); MEAN PLATELET VOLUME 7.5 fL (7.4-10.4); RDW 13.8 % (11.5-14.5); WBC 11.7 10x3/uL (4.8-10.8)
[2021-04-26 05:12] LABS: RBC 2.86 10x6/uL (4.00-5.40)
[2021-04-26 05:32] LABS: ALBUMIN 2.2 g/dL (3.4-5.0); BILIRUBIN - TOTAL 0.44 mg/dL (0.2-1.3); CALCIUM 7.4 mg/dL (8.5-10.1); CARBON DIOXIDE 25.1 mmol/L (21.0-32.0); PROTEIN - SERUM 4.7 g/dL (6.4-8.2)
[2021-04-26 05:33] LABS: ANION GAP 15.8 mmol/L (8-16); POTASSIUM - SERUM 4.9 mmol/L (3.5-5.1)
--- NOTE | 2021-04-26 11:16 | NUR ---
1000 A LINE DCD PER PROTOCOL
--- NOTE | 2021-04-26 11:53 | OP ---
PATIENT NAME: CODY CNAO MEDICAL RECORD: [id number] :50 LOCATION:D.CVI D.CV04 ADMISSION DATE:04/25/21 SURGEON: MANOJ BISHOP MD DATE OF OPERATION: 04/25/2021 SURGEON: Manoj Bishop MD PROCEDURE PERFORMED: 1. Coronary artery bypass graft times 2 (left internal mammary artery to LAD, reverse saphenous vein graft from aorta to first diagonal). 2. Endoscopic saphenous vein harvest. 3. Lysis of intrapleural adhesions. PREOPERATIVE DIAGNOSIS: Coronary artery disease with in-stent restenosis affecting the LAD and diagonal. POSTOPERATIVE DIAGNOSES: 1. Coronary artery disease with in-stent restenosis affecting the LAD and diagonal. 2. Extensive adhesions of the lingula and left upper lobe. ANESTHESIA: General endotracheal anesthesia. ESTIMATED BLOOD LOSS: Total cardiopulmonary bypass with Cell Saver retransfusion, 1 unit platelets. COMPLICATIONS: None. SPECIMENS: None. CONDITION: Stable. DISPOSITION: CV ICU. OPERATIVE FINDINGS: 1. Good quality greater saphenous vein somewhat thin walled harvested from the right lower extremity endoscopically. A few thin sites were oversewn on the vein. 2. Good quality left internal mammary artery. There were extensive adhesions of the lingula and left upper lobe along the mediastinum that had to be taken down sharply to allow access of the internal mammary to the pericardium for anastomosis. 3. Thin walled ascending aorta required pledgeted closure. 4. Normal size heart with good contractility. 5. LAD 1.5 mm. A 1.5mm probe passed distally to the apex and proximally to the level of the stent in the diagonal. 6. First diagonal beyond the stent 1.5 mm probe would not pass proximally and did pass distally in this vessel. 7. Left femoral arterial catheter placed under ultrasound guidance prior to sternal closure. INDICATION: Coronary artery disease, symptomatic in-stent restenosis. DESCRIPTION OF PROCEDURE: The patient was brought to the operating suite. General anesthesia was obtained. The patient was prepped and draped. Greater OPERATIVE REPORT [id number] CODY CANO saphenous vein was harvested endoscopically from the right lower extremity. Side branches divided with electrocautery. Vessels were ligated proximally and distally and removed. The side branches were tied. Thin sites were oversewn. Leg was irrigated and closed in 2 layers. Median sternotomy incision was made. Subcutaneous tissue divided with electrocautery. Sternum was divided with a saw. The left hemisternum was elevated. The left pleural cavity was entered. The sternal cortex was thin and wafer like. The internal mammary artery and veins were taken down as a pedicle graft. The sternal retractor was placed. Pericardium was opened. Heparin was given. Aorta was cannulated. Dual stage venous cannula was inserted. The internal mammary was clipped distally and made ready for anastomosis. Activated clotting time was appropriately elevated. The patient was placed on cardiopulmonary bypass. Sites for distal anastomosis were selected. An antegrade cardioplegia cannula was inserted. The patient's temperature drifted downwardly. The crossclamp was placed. Cardioplegia was given antegrade. This was repeated at 15- to 20-minute intervals including down the completed vein graft. Distal anastomosis was performed in standard technique. Proximal anastomosis with single crossclamp technique. The patient was fully rewarmed. Cross clamp removed. Vein grafts lay appropriately. Grafts had good hemostasis. Good Doppler signal in the internal mammary. The patient was weaned from cardiopulmonary bypass and was stable. The patient was decannulated. The cannula sites were oversewn with pledgeted sutures. Protamine was given. The graft lay appropriately. Hemostasis was assured. Thorough antibiotic irrigation was performed. Ventricular pacing wire was placed. A drain was placed in the mediastinum and both pleural cavities. Pericardial fat was approximated in the midline left and right chest evacuated internal mammary harvest site inspected for bleeding. Sternum was closed with wires. Fascia was closed. Subcutaneous tissue was closed. Skin was closed. Dermabond was placed. The needle and sponge counts were correct and the patient was taken to the ICU in stable condition. TRANSINT:[id number] Voice Confirmation ID: [id number] DOCUMENT ID: [id number] MANOJ BISHOP MD at 1153 CC: RIANA ELDRIDGE M.D. and WALTER HEATH [id number] DICTATION DATE: 04/25/211730 RICE FARMER: 04/25/212056 ADM IN [facility] [address] [place] [address]
[2021-04-27] VITALS (24 sets, daily range): BP systolic 85–120; BP diastolic 40–64
[2021-04-27 04:35] LABS: BASOPHILS 0.4 % (0-2); EOSINOPHILS 0.2 % (0-7); HEMATOCRIT 20.2 % (36.0-48.0); LYMPHOCYTES 21.2 % (15-50); MCH 28.3 pg (26.0-34.0); MCHC 32.8 g/dL (31.0-37.0); MCV 86.2 fL (80.0-100.0); MEAN PLATELET VOLUME 7.4 fL (7.4-10.4); MONOCYTES 6.4 % (2-11); NEUTROPHILS 71.8 % (40-80); RBC 2.35 10x6/uL (4.00-5.40); RDW 14.1 % (11.5-14.5)
[2021-04-27 04:55] LABS: BILIRUBIN - TOTAL 0.55 mg/dL (0.2-1.3); CREATININE - SERUM 1.1 mg/dL (0.6-1.3)
[2021-04-27 04:57] LABS: ALBUMIN 2.9 g/dL (3.4-5.0); ANION GAP 12.3 mmol/L (8-16); CALCIUM 10.8 mg/dL (8.5-10.1); POTASSIUM - SERUM 3.3 mmol/L (3.5-5.1)
[2021-04-27 05:01] LABS: PLATELET COUNT 103 10x3/uL (130-400); WBC 8.6 10x3/uL (4.8-10.8)
[2021-04-27 05:03] LABS: HEMOGLOBIN 6.6 g/dL (12-16)
--- NOTE | 2021-04-27 05:06 | NUR ---
3115 - RECEIVED CALL FROM YOHAN IN LAB REPORTING CRITICAL HGB OF 6.6. MESSAGE GIVEN TO PRIMARY NURSE.
[2021-04-27 08:22] LABS: HEMATOCRIT 26.5 % (36.0-48.0); HEMOGLOBIN 8.9 g/dL (12-16)
--- NOTE | 2021-04-27 12:31 | NUR ---
cts dcd by dr damico
[2021-04-28] VITALS (24 sets, daily range): BP systolic 85–133; BP diastolic 38–68
[2021-04-28 07:05] LABS: BASOPHILS 1.3 % (0-2); EOSINOPHILS 4.7 % (0-7); HEMATOCRIT 29.3 % (36.0-48.0); HEMOGLOBIN 9.5 g/dL (12-16); LYMPHOCYTES 14.6 % (15-50); MCH 26.8 pg (26.0-34.0); MCHC 32.4 g/dL (31.0-37.0); MONOCYTES 6.6 % (2-11); NEUTROPHILS 72.8 % (40-80); RDW 14.9 % (11.5-14.5); WBC 9.5 10x3/uL (4.8-10.8)
[2021-04-28 07:14] LABS: MCV 82.8 fL (80.0-100.0); PLATELET COUNT 438 10x3/uL (130-400); RBC 3.54 10x6/uL (4.00-5.40)
[2021-04-28 07:23] LABS: ALBUMIN 2.2 g/dL (3.4-5.0); ALKALINE PHOSPHATASE 126 U/L (30-120); BILIRUBIN - TOTAL 0.51 mg/dL (0.2-1.3); CALC OSMOLALITY 278 mosm/kg (275-300); CARBON DIOXIDE 26.3 mmol/L (21.0-32.0); CHLORIDE - SERUM 103 mmol/L (98-107); GLUCOSE 132 mg/dL (74-106); SODIUM 137 mmol/L (136-145); UREA NITROGEN 22 mg/dL (7-18)
[2021-04-28 07:51] LABS: ALT (SGPT) 59 U/L (10-68); CALCIUM 7.9 mg/dL (8.5-10.1); CREATININE - SERUM 0.6 mg/dL (0.6-1.3); POTASSIUM - SERUM 4.1 mmol/L (3.5-5.1); PROTEIN - SERUM 7.1 g/dL (6.4-8.2); eGFR NON AFRICAN AMERICAN > 90 mL/min (90-120)
--- NOTE | 2021-04-28 12:25 | NUR ---
Nutrition Follow-up: POD 3 CABG. Has not been eating well. Diet has been advanced to Diabetic. -BM; + flatus. Nursing reports hypoactive BS. Diet: Diabetic PO intake: 0% x 3 yesterday (clears) Wt: 170# (04/27) Labs noted: Glu 132, Ca 7.9, Alb 2.2 Meds noted: KDur, Ferrous Sulfate, Humulin, Glucophage, Amaryl, Protonix, Senokot, Colace -Encourage PO intake and honor food preferences within diet restrictions. -Offer Glucerna with meals. -Monitor wt. -RD follow-up: 05/01
[2021-04-29] VITALS (22 sets, daily range): BP systolic 83–130; BP diastolic 38–85
[2021-04-29 05:49] LABS: BASOPHILS 0.4 % (0-2); EOSINOPHILS 3.9 % (0-7); HEMOGLOBIN 9.3 g/dL (12-16); MCH 28.4 pg (26.0-34.0); MCHC 33.3 g/dL (31.0-37.0); MEAN PLATELET VOLUME 7.1 fL (7.4-10.4); MONOCYTES 6.9 % (2-11); NEUTROPHILS 57.8 % (40-80); RBC 3.28 10x6/uL (4.00-5.40); RDW 15.1 % (11.5-14.5)
[2021-04-29 05:53] LABS: MCV 85.3 fL (80.0-100.0); PLATELET COUNT 174 10x3/uL (130-400); WBC 6.8 10x3/uL (4.8-10.8)
[2021-04-29 06:06] LABS: ALBUMIN 2.6 g/dL (3.4-5.0); ANION GAP 10.2 mmol/L (8-16); BILIRUBIN - TOTAL 0.7 mg/dL (0.2-1.3); CALCIUM 8.3 mg/dL (8.5-10.1); POTASSIUM - SERUM 4.2 mmol/L (3.5-5.1); PROTEIN - SERUM 5.8 g/dL (6.4-8.2)
[2021-04-29 06:12] LABS: CREATININE - SERUM 0.9 mg/dL (0.6-1.3)
--- NOTE | 2021-04-29 12:55 | NUR ---
1150: TPM WIRE AND LAUREN DRAIN DC'D BY DR. BISHOP. 1200: R IJ DC'D. SITE DRESSED WITH 2X2 AND TEGADERM.
[2021-04-30] VITALS (11 sets, daily range): BP systolic 94–107; BP diastolic 41–60
[2021-04-30 04:29] LABS: BASOPHILS 0.3 % (0-2); EOSINOPHILS 3.3 % (0-7); HEMATOCRIT 28.7 % (36.0-48.0); HEMOGLOBIN 9.5 g/dL (12-16); LYMPHOCYTES 24.5 % (15-50); MCH 28.1 pg (26.0-34.0); MCHC 33.1 g/dL (31.0-37.0); MONOCYTES 6.5 % (2-11); NEUTROPHILS 65.4 % (40-80); PLATELET COUNT 192 10x3/uL (130-400); RBC 3.37 10x6/uL (4.00-5.40); RDW 14.4 % (11.5-14.5)
[2021-04-30 04:46] LABS: ALBUMIN 2.6 g/dL (3.4-5.0); ANION GAP 9.8 mmol/L (8-16); BILIRUBIN - TOTAL 0.5 mg/dL (0.2-1.3); CALCIUM 8.2 mg/dL (8.5-10.1); CARBON DIOXIDE 29.3 mmol/L (21.0-32.0); POTASSIUM - SERUM 4.1 mmol/L (3.5-5.1); PROTEIN - SERUM 6.1 g/dL (6.4-8.2)
[2021-05-01 03:30] VITALS: BP 122/68
[2021-05-01 04:43] LABS: BASOPHILS 0.7 % (0-2); EOSINOPHILS 3.4 % (0-7); HEMATOCRIT 26.1 % (36.0-48.0); HEMOGLOBIN 8.8 g/dL (12-16); LYMPHOCYTES 30.9 % (15-50); MCH 28.5 pg (26.0-34.0); MCHC 33.7 g/dL (31.0-37.0); MCV 84.7 fL (80.0-100.0); MEAN PLATELET VOLUME 7.5 fL (7.4-10.4); MONOCYTES 7.7 % (2-11); NEUTROPHILS 57.3 % (40-80); PLATELET COUNT 196 10x3/uL (130-400); RBC 3.09 10x6/uL (4.00-5.40); WBC 4.8 10x3/uL (4.8-10.8)
--- NOTE | 2021-05-01 07:10 | NUR ---
REPORT RECEIVED FROM OFF GOING NURSE AND PATIENT CARE ASSUMED. PATIENT SITTING UOP IN BS CHAIR AWAKE, ALERT AND ORIENTED X 4. PATIENT DENIES ANY NEEDS OR PAIN. PATIENT STATES SHE IS HOPING TO GO HOME TODAY. VSS. WILL CONTINUE WITH PLAN OF CARE. CALL LIGHT IN REACH.
[2021-05-01] MEDS ORDERED: LOPRESSOR25 MG PO (09:07)
--- NOTE | 2021-05-01 09:11 | NUR ---
PATIENT AMBULATING IN HALLWAY. TOLERATING VERY WELL.
[2021-05-01 09:31] LABS: CALCIUM 8.4 mg/dL (8.5-10.1); CARBON DIOXIDE 28.3 mmol/L (21.0-32.0); POTASSIUM - SERUM 4.3 mmol/L (3.5-5.1)
[2021-05-01] MEDS ORDERED: PERCOCET 5-3251 TAB PO (12:08)
--- NOTE | 2021-05-01 12:55 | MORECARE ---
CASE MANAGEMENT DISCHARGE SUMMARY PATIENT: CODY CANO UNIT: [id number] ADM DATE: 04/25/21 AGE: 70 : 50 SEX: F [facility] AUTHOR: LUCITADOC PHYSICIAN: REFERRING PHYSICIAN: MARIA ELENA BISHOP MD DATE OF SERVICE: 05/01/21 Case Management Discharge Planning Summary DCP REVIEW SUMMARY ANTICIPATED D/C DATE: EXPECTED LOS : CASE STATUS: DCP Initiated INITIAL REVIEW: 04/25/2021 INITIAL REVIEWER: Paulina Werner FINAL DISCHARGE DISPOSITION: : FINAL REVIEWER: FINAL REVIEW DATE: DCP Focus Questions & Answers DCP Screen QUESTION: ANSWER High Risk Factors: : None Walking limitation: Patient stated self rated walking limitation present? : No Age: : 65 - 79 Prior living environment: : Lives with others Disability ranking: : Grade 1: No significant disability DCP Evaluation QUESTION: ANSWER Patient's ability to cope with chronic illness : a. Adequate (0-3 ED visits in 6 mos., adequate financial resources, attends scheduled appts.) Family / Caregiver's ability to cope with chronic illness: : a. Adequate (ability to meet patient's medical needs, ensures patient attends medical appts.) Physical Status: : Independent with ADL's Living Arrangements: : Home with Extended Family Living arrangements comments: : Lives with her adult son-Crissy and her adult granddaughter-Mecca Krishna [phone] Baseline cognitive status: : *Oriented to person, place, situation, time and present Medication Management: : Patient states can afford medications Pharmacy name(s): : [facility] Does Patient have transportation to get home and to follow-up medical appointments when discharged from the hospital? : Yes Would patient like to participate in any Care Coordination programs (if applicable): : Not applicable Does the patient have electricity at home? : Yes Does the patient have running water in their house? : Yes Equipment in use: : Glucometer Mental health screen: : No mental health history Psychosocial status: : Independent adult (65+) Abuse/Neglect: : None Resources / Services in place: : None DCP Re-evaluation QUESTION: ANSWER Would patient like to participate in any Care Coordination programs (if applicable): : Not applicable PATIENT: CODY CANO ENCOUNTER: [id number] MEDICAL RECORD#: [id number] ADMISSION DATE: 04/25/2021 DISCHARGE DATE: ATTENDING MD: MARIA ELENA AUGUSTIN : AGE: 70 MARITAL STATUS: W DC PLAN ID: [id number] FACILITY: [facility] PRINTED ON: 05/01/21 12:55 CT All edits/amendments must be made on the electronic document DICTATION DATE: 05/01/21 125 EXECUTIVE DIRECTOR OF MARKETING: LANE 05/01/21 1255 RPT#: [id number] DC DATE: STATUS: ADM IN [facility] [address] [place] [address] END OF REPORT
--- NOTE | 2021-05-01 13:08 | MORECARE ---
CASE MANAGEMENT DISCHARGE SUMMARY PATIENT: CODY CANO UNIT: [id number] ADM DATE: 04/25/21 AGE: 70 : 50 SEX: F [facility] AUTHOR: LUCITA,DOC PHYSICIAN: REFERRING PHYSICIAN: MARIA ELENA BISHOP MD DATE OF SERVICE: 05/01/21 Case Management Discharge Planning Summary COMMENTS ENTERED DATE: 05/01/21 12:55 CT COMMENT TYPE: Discharge Planning REVIEWER: Paulina Werner CM met with patient to discuss discharge planning / needs. CM discussed availability of home health, rehab services, and medical equipment. Patient states she plans to discharge to home. States the home environment is safe. She lives with her adult granddaughter, Mecca Krishna [phone] and her adult son, Crissy. States Dr. Wren is her PCP. States her granddaughter will transport her home. Denies need for DME or other post acute care services at this time. CM explained and served DC IMM. DCP REVIEW SUMMARY ANTICIPATED D/C DATE: EXPECTED LOS : CASE STATUS: DCP Initiated INITIAL REVIEW: 04/25/2021 INITIAL REVIEWER: Paulina Werner FINAL DISCHARGE DISPOSITION: : FINAL REVIEWER: FINAL REVIEW DATE: DCP Focus Questions & Answers DCP Screen QUESTION: ANSWER High Risk Factors: : None Walking limitation: Patient stated self rated walking limitation present? : No Age: : 65 - 79 Prior living environment: : Lives with others Disability ranking: : Grade 1: No significant disability DCP Evaluation QUESTION: ANSWER Patient's ability to cope with chronic illness : a. Adequate (0-3 ED visits in 6 mos., adequate financial resources, attends scheduled appts.) Patient and/or caregiver agree upon recommended discharge plan? : Yes Family / Caregiver's ability to cope with chronic illness: : a. Adequate (ability to meet patient's medical needs, ensures patient attends medical appts.) Patient's current cognitive status: : *Oriented to person, place, situation, time and present Family / Caregiver's ability to cope with chronic illness: : a. Adequate (ability to meet patient's medical needs, ensures patient attends medical appts.) Physical Status: : Independent with ADL's Does the patient have the ability to pay for or attain post discharge needs / services? : Yes Functional screen assessment: : Basic needs can adequately be met by self Living Arrangements: : Home with Extended Family Equipment needed for post hospitalization: : None Is there a likelihood that the patient will require additional services to return to the preadmission environment? : No Living arrangements comments: : Lives with her adult son-Crissy and her adult granddaughter-Mecca Krishna [phone] Baseline cognitive status: : *Oriented to person, place, situation, time and present Results of this evaluation have been discussed with: : Patient Patient with capacity for self-care or can be cared for in same environment as prior to hospitalization? : Yes Physical environment modification needed / anticipated for discharge: : No Preadmission facility can/cannot provide post hospital level of care needs: : Can - at same level of care as preadmission Medication Management: : Patient states can afford medications Pharmacy name(s): : [facility] Planned post hospital services available for patient? : N/A Does Patient have transportation to get home and to follow-up medical appointments when discharged from the hospital? : Yes Planned post hospital services covered by insurance plan? : N/A Would patient like to participate in any Care Coordination programs (if applicable): : Not applicable Does the patient have electricity at home? : Yes Does the patient have running water in their house? : Yes Equipment in use: : Glucometer Mental health screen: : No mental health history Psychosocial status: : Independent adult (65+) Abuse/Neglect: : None Resources / Services in place: : None Problems identified by the patient regarding discharge: : None DCP Re-evaluation QUESTION: ANSWER Would patient like to participate in any Care Coordination programs (if applicable): : Not applicable PATIENT: CODY CANO ENCOUNTER: [id number] MEDICAL RECORD#: [id number] ADMISSION DATE: 04/25/2021 DISCHARGE DATE: ATTENDING MD: MARIA ELENA AUGUSTIN : AGE: 70 MARITAL STATUS: W DC PLAN ID: [id number] FACILITY: [facility] PRINTED ON: 05/01/21 13:08 CT All edits/amendments must be made on the electronic document DICTATION DATE: 05/01/21 1308 INSURANCE CLAIMS SUPERVISOR: LANE 05/01/21 1308 RPT#: [id number] DC DATE: STATUS: ADM IN [facility] [address] [place] [address] END OF REPORT
--- NOTE | 2021-05-01 14:31 | NUR ---
PATIENT IS STABLE AND VSS. PATIENT DENIES ANY NEEDS OR PAIN. ORDER RECIEVED FOR DC. PATIENT HAS NO IV ACCESS TO DC. WRITTEN AND VERBAL INSTRUCTIONS GIVEN BY THIS PATIENT AND GEREMIAS WINKLER WITH DR BISHOP. PATIENT VERBALIZED UNDERSTANDING AND SIGNED WRITTEN INSTRUCTIONS. PATIENT TO CARDIOLOGY EXIT DOOR VIA WC ACCOMPANIED BY HOSPITAL PERSONNEL TO PRIVATE VEHICLE DRIVEN BY PATIENTS SON.
--- NOTE | 2021-05-01 15:46 | MORECARE ---
CASE MANAGEMENT DISCHARGE SUMMARY PATIENT: CODY CANO UNIT: [id number] ADM DATE: 04/25/21 AGE: 70 : 50 SEX: F [facility] AUTHOR: LUCITA,DOC PHYSICIAN: REFERRING PHYSICIAN: MARIA ELENA BISHOP MD DATE OF SERVICE: 05/01/21 Case Management Discharge Planning Summary COMMENTS ENTERED DATE: 05/01/21 12:55 CT COMMENT TYPE: Discharge Planning REVIEWER: Paulina Werner CM met with patient to discuss discharge planning / needs. CM discussed availability of home health, rehab services, and medical equipment. Patient states she plans to discharge to home. States the home environment is safe. She lives with her adult granddaughter, Mecca Krishna [phone] and her adult son, Crissy. States Dr. Wren is her PCP. States her granddaughter will transport her home. Denies need for DME or other post acute care services at this time. CM explained and served DC IMM. DCP REVIEW SUMMARY ANTICIPATED D/C DATE: EXPECTED LOS : CASE STATUS: DCP Complete INITIAL REVIEW: 04/25/2021 INITIAL REVIEWER: Paulina Werner FINAL DISCHARGE DISPOSITION: : FINAL REVIEWER: FINAL REVIEW DATE: DCP Focus Questions & Answers DCP Screen QUESTION: ANSWER High Risk Factors: : None Walking limitation: Patient stated self rated walking limitation present? : No Age: : 65 - 79 Prior living environment: : Lives with others Disability ranking: : Grade 1: No significant disability DCP Evaluation QUESTION: ANSWER Patient's ability to cope with chronic illness : a. Adequate (0-3 ED visits in 6 mos., adequate financial resources, attends scheduled appts.) Patient and/or caregiver agree upon recommended discharge plan? : Yes Family / Caregiver's ability to cope with chronic illness: : a. Adequate (ability to meet patient's medical needs, ensures patient attends medical appts.) Patient's current cognitive status: : *Oriented to person, place, situation, time and present Family / Caregiver's ability to cope with chronic illness: : a. Adequate (ability to meet patient's medical needs, ensures patient attends medical appts.) Physical Status: : Independent with ADL's Does the patient have the ability to pay for or attain post discharge needs / services? : Yes Functional screen assessment: : Basic needs can adequately be met by self Living Arrangements: : Home with Extended Family Equipment needed for post hospitalization: : None Is there a likelihood that the patient will require additional services to return to the preadmission environment? : No Living arrangements comments: : Lives with her adult son-Crissy and her adult granddaughter-Mecca Krishna [phone] Baseline cognitive status: : *Oriented to person, place, situation, time and present Results of this evaluation have been discussed with: : Patient Patient with capacity for self-care or can be cared for in same environment as prior to hospitalization? : Yes Physical environment modification needed / anticipated for discharge: : No Preadmission facility can/cannot provide post hospital level of care needs: : Can - at same level of care as preadmission Medication Management: : Patient states can afford medications Pharmacy name(s): : [facility] Planned post hospital services available for patient? : N/A Does Patient have transportation to get home and to follow-up medical appointments when discharged from the hospital? : Yes Planned post hospital services covered by insurance plan? : N/A Would patient like to participate in any Care Coordination programs (if applicable): : Not applicable Does the patient have electricity at home? : Yes Does the patient have running water in their house? : Yes Equipment in use: : Glucometer Mental health screen: : No mental health history Psychosocial status: : Independent adult (65+) Abuse/Neglect: : None Resources / Services in place: : None Problems identified by the patient regarding discharge: : None DCP Re-evaluation QUESTION: ANSWER Would patient like to participate in any Care Coordination programs (if applicable): : Not applicable PATIENT: CODY CANO ENCOUNTER: [id number] MEDICAL RECORD#: [id number] ADMISSION DATE: 04/25/2021 DISCHARGE DATE: 05/01/2021 ATTENDING MD: MARIA ELENA AUGUSTIN : AGE: 70 MARITAL STATUS: W DC PLAN ID: [id number] FACILITY: [facility] PRINTED ON: 05/01/21 15:46 CT All edits/amendments must be made on the electronic document DICTATION DATE: 05/01/21 1546 MILLWRIGHT SUPERVISOR: LANE 05/01/21 1546 RPT#: [id number] DC DATE:05/01/21 STATUS: DIS IN [facility] [address] [place] [address] END OF REPORT
--- NOTE | 2021-05-02 08:13 | TEE ---
PATIENT:CODY CANO MEDICAL RECORD: [id number] LOCATION:[place] [address] AGE OF PATIENT: 70 ADMISSION DATE: 04/25/21 SEX: F REFERRING PHYSICIAN: INTERPRETING PHYSICIAN: DAMIÁN GIL MD TRANSESOPHAGEAL ECHOCARDIOGRAM Date: 04/25/21 THUY CHARGE Y INDICATIONS: CABG PREMEDICATIONS: PATIENT'S RESPONSE PROCEDURE DOPPLER MEASUREMENTS: LVIT LA 3.8 PA RA LVOT RVOT Asc. Ao AV Gradient Peak AV Mean AV Area MV Gradient Peak MV Mean MV Area INTERPRETATION: Doppler: 2-D: COLOR FLOW DOPPLER NORMAL SALINE STUDY: MISCELLANOUS: DIAGNOSIS: PLAN: Advanced Practice Rn:Epi Jacob Warehouse Worker 2Nd Shift: Epi BIRD COMMENTS: DATE OF SERVICE: 05/01/2021 PROCEDURE: Intraoperative THUY. FINDINGS: Preop shows normal LV wall motion and wall thickening, EF greater than 55%. Aortic valve is tricuspid with good valve excursion. Left atrium appears normal. Mitral valve appears normal. Trace MR. Postoperatively, again good wall motion and wall thickening, EF greater than 55%. Aortic valve is tricuspid with good valve excursion. Left atrium appears normal. Mitral valve TRANSESOPHAGEAL ECHOCARDIOGRAM REPORT [id number] CODY CANO appears normal. Trivial MR. TRANSINT:[id number] Voice Confirmation ID: [id number] DOCUMENT ID: [id number] at 0813 CC: [id number] DICTATION DATE: 05/01/21 1051 LOOM FIXER SUPERVISOR: 05/01/21 1140 DIS IN 05/01/21 [place] [id number] [place] [address]
== END 2021-05-01 14:34 | disposition home or self-care (01) | DRG 236 ==
LOC: D.SDCHOLD 05:05 → D.CVICU 05:05 → D.SDCHOLD 07:30 → D.CVICU 13:37 → D.SDCHOLD 04-26 07:30 → D.CVICU 05-01 14:34
PROVIDERS: Emergency Medicine; ADMIT Thoracic Surgery (Cardiothoracic Vascular Surgery); ATTEND Thoracic Surgery (Cardiothoracic Vascular Surgery)
PROC: 021009W Bypass Coronary Artery, One Artery from Aorta with Autologous Venous Tissue, Open Approach (ICD-10-PCS; 2021-04-25)
PROC: 0BNP0ZZ Release Left Pleura, Open Approach (ICD-10-PCS; 2021-04-25)
PROC: 06BP4ZZ Excision of Right Saphenous Vein, Percutaneous Endoscopic Approach (ICD-10-PCS; 2021-04-25)
PROC: 02100A9 Bypass Coronary Artery, One Artery from Left Internal Mammary with Autologous Arterial Tissue, Open Approach (ICD-10-PCS; principal; 2021-04-25 07:30)
DX: I25.119 Atherosclerotic heart disease of native coronary artery with unspecified angina pectoris (principal); J94.8 Other specified pleural conditions; T82.855A Stenosis of coronary artery stent, initial encounter; D62 Acute posthemorrhagic anemia; I10 Essential (primary) hypertension; K21.9 Gastro-esophageal reflux disease without esophagitis; M19.90 Unspecified osteoarthritis, unspecified site; F32.9 Major depressive disorder, single episode, unspecified; K76.0 Fatty (change of) liver, not elsewhere classified; Z95.5 Presence of coronary angioplasty implant and graft; E11.65 Type 2 diabetes mellitus with hyperglycemia; E78.5 Hyperlipidemia, unspecified; Z79.84 Long term (current) use of oral hypoglycemic drugs; E11.649 Type 2 diabetes mellitus with hypoglycemia without coma

== ENCOUNTER → 2021-05-24 09:00 | Outpatient (CLI) | payer OTHER ==
[2021-04-26 09:36] VITALS: BMI 26.4
[~2021-05-24 09:00] MED LIST changes: +LOPRESSOR25 MG PO; +PERCOCET 5-3251 TAB PO
[2021-05-24 09:29] LABS: BASOPHILS 0.8 % (0-2); EOSINOPHILS 5.4 % (0-7); HEMATOCRIT 35.1 % (36.0-48.0); HEMOGLOBIN 11.3 g/dL (12-16); LYMPHOCYTES 34.9 % (15-50); MCHC 32.2 g/dL (31.0-37.0); MCV 83.9 fL (80.0-100.0); MEAN PLATELET VOLUME 7.1 fL (7.4-10.4); NEUTROPHILS 50.9 % (40-80); RBC 4.18 10x6/uL (4.00-5.40); RDW 14.5 % (11.5-14.5); WBC 6.6 10x3/uL (4.8-10.8)
[2021-05-24 09:31] LABS: PLATELET COUNT 372 10x3/uL (130-400)
[2021-05-24 09:41] LABS: ANION GAP 12.3 mmol/L (8-16); CALCIUM 8.9 mg/dL (8.5-10.1); CARBON DIOXIDE 27.9 mmol/L (21.0-32.0); CREATININE - SERUM 1.3 mg/dL (0.6-1.3); POTASSIUM - SERUM 4.2 mmol/L (3.5-5.1)
== END | disposition home or self-care (01) ==
LOC: D.LAB 09:00
PROVIDERS: ATTEND Thoracic Surgery (Cardiothoracic Vascular Surgery)
DX: Z48.812 Encounter for surgical aftercare following surgery on the circulatory system (principal)